=== PATIENT | male | born 1965 | race American Indian/Alaskan Native ===

== ENCOUNTER 2016-06-12 22:59 | Emergency (ER) | payer OTHER ==
[2016-06-13] MEDS ORDERED: ROBITUSSIN AC PO ONE ×2 (01:57→02:33)
[2016-06-13] MEDS ORDERED: ZITHROMAX PO ONE (01:57)
--- NOTE | 2016-06-13 01:57 | Emergency Department Report ---
HPI - General Chief Complaint: Upper Respiratory Infection Time Seen by Provider: 06/13/16 01:16 - HPI HPI: Patient is a 51-year-old male with a history of bronchitis a preferred to ED complaining of cough 3 days. Patient states cough is began as nonproductive and has become productive with yellow greenish mucus tinged cough. he states that she is very comfortably coughing she states cough is intermittent throughout the day worse at night causing him for restless night Patient denies fever/chills/nausea/vomiting/abdominal pain ED Past Medical Hx - Past Medical History Previous Medical History?: Yes Hx Hypertension: Yes Hx GERD: Yes Hx Arthritis: Yes Additional medical history: GOUT - Surgical History Past Surgical History?: Yes Additional Surgical History: bilateral knee surgery - Social History Smoking Status: Never Smoker Substance Use Type: None - Medications Home Medications: Home Medications Medication Instructions Recorded Confirmed Last Taken Type Febuxostat [Uloric] 80 mg PO DAILY 03/23/14 05/06/14 03/23/14 History Lisinopril [Zestril TAB] 5 mg PO QDAY #30 tablet 05/07/14 Unknown Rx amLODIPine [Norvasc] 5 mg PO HS #30 tablet 05/07/14 Unknown Rx Cyclobenzaprine [Flexeril 10mg] 10 mg PO Q8H PRN #21 tablet 06/17/14 Unknown Rx Albuterol Sulfate [Ventolin HFA] 2 puff IH Q4H PRN #1 hfa.aer.ad 12/16/14 Unknown Rx Azithromycin [Zithromax Z-KORY] 0 mg PO DAILY #6 tab 12/16/14 Unknown Rx predniSONE [Deltasone] 20 mg PO BID #10 tab 12/16/14 Unknown Rx Azithromycin [Zithromax TAB] 250 mg PO DAILY #4 tablet 06/13/16 Unknown Rx Benzonatate [Tessalon Perles] 100 mg PO Q8HR #20 capsule 06/13/16 Unknown Rx Promethazine /Codeine 5 ml PO Q6H PRN #100 ml 06/13/16 Unknown Rx [Phenergan/Codeine 6.25-10 mg/5 ml] ED Review of Systems ROS: Stated complaint: BREATHING PAIN Other details as noted in HPI Constitutional: denies: chills, fever Eyes: denies: eye pain, eye discharge, vision change ENT: denies: ear pain, throat pain, dental pain, hearing loss, epistaxis, congestion Respiratory: cough. denies: shortness of breath, wheezing Cardiovascular: denies: chest pain, palpitations Endocrine: no symptoms reported Gastrointestinal: denies: abdominal pain, nausea, diarrhea Genitourinary: denies: urgency, dysuria Musculoskeletal: denies: back pain, joint swelling, arthralgia Skin: denies: rash, lesions Neurological: denies: headache, weakness, paresthesias Psychiatric: denies: anxiety, depression Hematological/Lymphatic: denies: easy bleeding, easy bruising Physical Exam - Physical Exam Vital Signs: Vital Signs 06/12/16 23:08 Temperature 98.7 F Pulse Rate 97 H Respiratory 16 Rate Blood Pressure 161/113 O2 Sat by Pulse 98 Oximetry Physical Exam: GENERAL: Alert and oriented x3, no apparent distress, Normal Gait, atraumatic. Intermittent coughing during the examination HEAD: Head is normocephalic and a-traumatic. EYES: Extra ocular muscles are intact. Pupils are equal, round, and reactive to light and accommodation. EARS: symetrical, atraumatic, non tender, ear canal clear and moderate cerumen, tympanic membrance non inflamed. gross auditory nml bilaterally. NOSE: Nose symetrical, Nontender,Nares appeared normal. MOUTH:Mouth is well hydrated and without lesions. Tonsils nonerythematous or swollen, Uvula midline, Tongue not elevated. Mucous membranes are moist. Posterior pharynx clear, no exudate or lesions. Patent airways. NECK: Supple. Non edematous, No carotid bruits. No lymphadenopathy or thyromegaly. LUNGS: Symetrical with respiration, No wheezing, no rales or crackles, CTAB. HEART: S1, S2 present, regular rate and rhythm without murmur, no rubs, no gallops. ABDOMEN: No organomegaly was noted,Positive bowel sounds, soft, and non- distended. . Nontender to palpation on all Quadrants, NO CVA tenderness. SKIN: Warm and dry, No lesions, No ulceration or induration present. ED Course Vital Signs 06/12/16 23:08 Temperature 98.7 F Pulse Rate 97 H Respiratory 16 Rate Blood Pressure 161/113 O2 Sat by Pulse 98 Oximetry ED Medical Decision Making - Medical Decision Making 51-year-old male presents with bronchitis with upper respiratory infection. ED course: He received Solu-Medrol IM and ED Philip Discussed the patient to follow-up with primary care physician in 3-5 days. Discussed with patient proper rest and increase hydration. Discussed all medication of complete dose of antibiotic and cough suppressant. Patient vital signs are stable. Patient's blood pressure reduced prior to discharge. Discussed the patient and go home and take his blood pressure medication. Patient states he is on lisinopril amlodipine and has not taken his blood pressure today - Differential Diagnosis 1. Upper respiratory infection 2. Bronchitis, 3. Sinusitis Critical care attestation.: If time is entered above; I have spent that time in minutes in the direct care of this critically ill patient, excluding procedure time. ED Disposition Clinical Impression: Bronchitis URI (upper respiratory infection) Qualifiers: URI type: unspecified URI Qualified Code(s): J06.9 - Acute upper respiratory infection, unspecified Disposition: DISCHARGED TO HOME OR SELFCARE Is pt being admited?: No Does the pt Need Aspirin: No Condition: Stable Instructions: Upper Respiratory Infection (ED), Chronic Bronchitis (ED) Prescriptions: Azithromycin [Zithromax TAB] 250 mg PO DAILY #4 tablet Benzonatate [Tessalon Perles] 100 mg PO Q8HR #20 capsule Promethazine /Codeine [Phenergan/Codeine 6.25-10 mg/5 ml] 5 ml PO Q6H PRN #100 ml PRN Reason: cough Referrals: PRIMARY MD MACI [Primary Care Provider] - 3-5 Days KENIA COLLIER MD [Referring] - 3-5 Days ABDULLAHI GALINDO MD [Referring] - 3-5 Days Forms: Accompanied Note, Work/School Release Form(ED) Time of Disposition: 02:22
[2016-06-13 02:04] VITALS: BP 140/101
== END 2016-06-13 03:13 | disposition home or self-care (01) ==
LOC: ED 22:59
DX: J40 Bronchitis, not specified as acute or chronic (principal); J06.9 Acute upper respiratory infection, unspecified; I10 Essential (primary) hypertension; K21.9 Gastro-esophageal reflux disease without esophagitis; M19.90 Unspecified osteoarthritis, unspecified site; M10.9 Gout, unspecified
CPT/HCPCS: 96372; 99282; J2930

== ENCOUNTER 2016-08-11 06:19 | Emergency (ER) | payer OTHER ==
[2016-08-11 06:48] VITALS: BP 149/110
[2016-08-11 07:05] LABS: Basophils % (Auto) 0.8 % (0.0-1.8); Eosinophils % (Auto) 4.4 % (0.0-4.3); Hematocrit 42.5 % (35.5-45.6); Hemoglobin 14.1 gm/dl (11.8-15.2); Mean Corpuscular HGB Conc 33 % (32-34); Mean Corpuscular Hemoglobin 30 pg (28-32); Mean Corpuscular Volume 89 fl (84-94); Red Blood Count 4.76 M/mm3 (3.65-5.03); Red Cell Distribution Width 14.2 % (13.2-15.2); White Blood Count 11.5 K/mm3 (4.5-11.0)
[2016-08-11 07:16] LABS: Anion Gap 19 mmol/L; Blood Urea Nitrogen 18 mg/dL (9-20); Calcium 8.7 mg/dL (8.4-10.2); Carbon Dioxide 25 mmol/L (22-30); Chloride 99.6 mmol/L (98-107); Glucose 124 mg/dL (75-100); Potassium 4.3 mmol/L (3.6-5.0); Sodium 139 mmol/L (137-145)
--- NOTE | 2016-08-11 07:40 | Emergency Department Report ---
ED General Adult HPI - General Chief complaint: Extremity Problem,Nontraumatic Stated complaint: LEFT FOOT GOUT PAIN Time Seen by Provider: 08/11/16 07:17 Source: patient Mode of arrival: Ambulatory Limitations: No Limitations - History of Present Illness Initial comments: Patient comes in the ER today with complaints of left ankle pain and swelling since about 3 AM which is approximately 4-5 hours ago. Patient states this feels like his past gout flareups. Patient has been taking allopurinol 300 mg daily chronically and his last gout flareup was May 2016. Patient denies any injury. Patient does state that he has a cane he keeps in his car for ambulation. Radiation: non-radiation Quality: sharp Consistency: constant Improves with: rest Worsens with: movement - Related Data Home Medications Medication Instructions Recorded Confirmed Last Taken Febuxostat [Uloric] 80 mg PO DAILY 03/23/14 05/06/14 03/23/14 Previous Rx's Medication Instructions Recorded Last Taken Type Lisinopril [Zestril TAB] 5 mg PO QDAY #30 tablet 05/07/14 Unknown Rx amLODIPine [Norvasc] 5 mg PO HS #30 tablet 05/07/14 Unknown Rx Cyclobenzaprine [Flexeril 10 MG 10 mg PO Q8H PRN #21 tablet 06/17/14 Unknown Rx TAB] Albuterol Sulfate [Ventolin HFA] 2 puff IH Q4H PRN #1 hfa.aer.ad 12/16/14 Unknown Rx predniSONE [Deltasone] 20 mg PO BID #10 tab 12/16/14 Unknown Rx Benzonatate [Tessalon Perles] 100 mg PO Q8HR #20 capsule 06/13/16 Unknown Rx Colchicine 0.6 mg PO BID #10 tablet 08/11/16 Unknown Rx Indomethacin 50 mg PO Q8H #30 capsule 08/11/16 Unknown Rx traMADol [Ultram 50 MG tab] 50 mg PO Q4HR PRN #30 tablet 08/11/16 Unknown Rx Allergies Allergy/AdvReac Type Severity Reaction Status Date / Time acetaminophen [From Tylenol] Allergy Swelling Verified 03/23/14 21:24 Penicillins Allergy Swelling Verified 03/23/14 21:24 ED Review of Systems ROS: Stated complaint: LEFT FOOT GOUT PAIN Other details as noted in HPI Constitutional: denies: chills, fever Eyes: denies: eye pain, eye discharge, vision change ENT: denies: ear pain, throat pain Respiratory: denies: cough, shortness of breath, wheezing Cardiovascular: denies: chest pain, palpitations, dyspnea on exertion Endocrine: no symptoms reported Gastrointestinal: denies: abdominal pain, nausea, diarrhea Genitourinary: denies: urgency, dysuria Musculoskeletal: joint swelling, arthralgia. denies: back pain Skin: denies: rash, lesions Neurological: denies: headache, weakness, paresthesias Psychiatric: denies: anxiety, depression Hematological/Lymphatic: denies: easy bleeding, easy bruising ED Past Medical Hx - Past Medical History Previous Medical History?: Yes Hx Hypertension: Yes Hx GERD: Yes Hx Arthritis: Yes Additional medical history: GOUT - Surgical History Past Surgical History?: Yes Additional Surgical History: bilateral knee surgery - Social History Smoking Status: Never Smoker Substance Use Type: Alcohol - Medications Home Medications: Home Medications Medication Instructions Recorded Confirmed Last Taken Type Febuxostat [Uloric] 80 mg PO DAILY 03/23/14 05/06/14 03/23/14 History Lisinopril [Zestril TAB] 5 mg PO QDAY #30 tablet 05/07/14 Unknown Rx amLODIPine [Norvasc] 5 mg PO HS #30 tablet 05/07/14 Unknown Rx Cyclobenzaprine [Flexeril 10 MG 10 mg PO Q8H PRN #21 tablet 06/17/14 Unknown Rx TAB] Albuterol Sulfate [Ventolin HFA] 2 puff IH Q4H PRN #1 hfa.aer.ad 12/16/14 Unknown Rx predniSONE [Deltasone] 20 mg PO BID #10 tab 12/16/14 Unknown Rx Benzonatate [Tessalon Perles] 100 mg PO Q8HR #20 capsule 06/13/16 Unknown Rx Colchicine 0.6 mg PO BID #10 tablet 08/11/16 Unknown Rx Indomethacin 50 mg PO Q8H #30 capsule 08/11/16 Unknown Rx traMADol [Ultram 50 MG tab] 50 mg PO Q4HR PRN #30 tablet 08/11/16 Unknown Rx ED Physical Exam - General Limitations: No Limitations General appearance: alert, in no apparent distress - Head Head exam: Present: atraumatic, normocephalic - Eye Eye exam: Present: normal appearance - ENT ENT exam: Present: mucous membranes moist - Neck Neck exam: Present: normal inspection - Respiratory Respiratory exam: Present: normal lung sounds bilaterally. Absent: respiratory distress - Cardiovascular Cardiovascular Exam: Present: regular rate, normal rhythm. Absent: systolic murmur, diastolic murmur, rubs, gallop - GI/Abdominal GI/Abdominal exam: Present: soft, normal bowel sounds - Rectal Rectal exam: Present: deferred - Extremities Exam Extremities exam: Present: normal inspection, tenderness (left ankle), joint swelling (mild amount of swelling in left ankle.). Absent: full ROM (limited left ankle range of motion secondary to pain.), normal capillary refill, pedal edema, calf tenderness - Back Exam Back exam: Present: normal inspection, full ROM. Absent: tenderness, CVA tenderness (R), CVA tenderness (L), muscle spasm, rash noted - Neurological Exam Neurological exam: Present: alert, oriented X3, CN II-XII intact, abnormal gait (limping secondary to pain and left ankle), reflexes normal. Absent: motor sensory deficit - Psychiatric Psychiatric exam: Present: normal affect, normal mood - Skin Skin exam: Present: warm, dry, intact, normal color. Absent: rash ED Course Vital Signs 08/11/16 06:44 Temperature 98.0 F Pulse Rate 73 Respiratory 20 Rate Blood Pressure 149/110 O2 Sat by Pulse 99 Oximetry ED Medical Decision Making - Lab Data Result diagrams: 08/11/16 06:52 08/11/16 06:52 - Medical Decision Making Patient is nontoxic and hemodynamically stable. Patient's history and physical exam is more consistent with gout rather than injury. I see no need for imaging at this time. Patient was given single dose of colchicine in the ER. I will continue patient on a short course of colchicine as well as some anti- inflammatories. Patient is in agreement with treatment plan and patient is stable for discharge. Critical care attestation.: If time is entered above; I have spent that time in minutes in the direct care of this critically ill patient, excluding procedure time. ED Disposition Clinical Impression: Gout, Left ankle pain Disposition: DISCHARGED TO HOME OR SELFCARE Is pt being admited?: No Does the pt Need Aspirin: No Condition: Good Instructions: Acute Gouty Arthritis (ED) Prescriptions: Colchicine 0.6 mg PO BID #10 tablet Indomethacin 50 mg PO Q8H #30 capsule traMADol [Ultram 50 MG tab] 50 mg PO Q4HR PRN #30 tablet PRN Reason: Pain Referrals: PRIMARY CARE,MD [Primary Care Provider] - 3-5 Days Time of Disposition: 07:50
[2016-08-11] MEDS ORDERED: COLCRYS PO ONE (08:00)
[2016-08-11 09:02] LABS: Platelet Count 286 K/mm3 (140-440)
== END 2016-08-11 08:36 | disposition home or self-care (01) ==
LOC: ED 06:19
DX: M10.9 Gout, unspecified (principal); M25.572 Pain in left ankle and joints of left foot; I10 Essential (primary) hypertension; K21.9 Gastro-esophageal reflux disease without esophagitis; M19.90 Unspecified osteoarthritis, unspecified site; Z88.0 Allergy status to penicillin; Z88.8 Allergy status to other drugs, medicaments and biological substances
CPT/HCPCS: 36415; 80048; 85025; 99283

== ENCOUNTER 2018-04-13 08:52 | Emergency (ER) | payer OTHER ==
[2018-04-13] MEDS ORDERED: IBUPROFEN PO ONE ×2 (09:06→09:12)
--- NOTE | 2018-04-13 10:09 | Emergency Department Report ---
Minor Respiratory - HPI Chief Complaint: Upper Respiratory Infection Stated Complaint: COLD SX/HEADACHE Time Seen by Provider: 04/13/18 09:46 Duration: 2 Days Pain Location: Chest Severity: moderate Minor Respiratory: Yes Rhinorrhea, Yes Able to Tolerate Fluids, Yes Cough (productive of yellow sputum), Yes Sick Contacts (daughter ill as well), Yes Fever, No Sore Throat, No Ear Pain, No Hemoptysis, No Chest Pain, No Shortness of Breath ED Review of Systems ROS: Stated complaint: COLD SX/HEADACHE Other details as noted in HPI Comment: All other systems reviewed and negative ED Past Medical Hx - Past Medical History Hx Hypertension: Yes Hx GERD: Yes Hx Arthritis: Yes Additional medical history: GOUT - Surgical History Past Surgical History?: Yes Additional Surgical History: bilateral knee surgery - Social History Smoking Status: Never Smoker Substance Use Type: None - Medications Home Medications: Home Medications Medication Instructions Recorded Confirmed Last Taken Type Febuxostat [Uloric] 80 mg PO DAILY 03/23/14 05/06/14 03/23/14 History Lisinopril [Zestril TAB] 5 mg PO QDAY #30 tablet 05/07/14 Unknown Rx amLODIPine [Norvasc] 5 mg PO HS #30 tablet 05/07/14 Unknown Rx Cyclobenzaprine [Flexeril 10 MG 10 mg PO Q8H PRN #21 tablet 06/17/14 Unknown Rx TAB] Albuterol Sulfate [Ventolin HFA] 2 puff IH Q4H PRN #1 hfa.aer.ad 12/16/14 Unknown Rx predniSONE [Deltasone] 20 mg PO BID #10 tab 12/16/14 Unknown Rx Benzonatate [Tessalon Perles] 100 mg PO Q8HR #20 capsule 06/13/16 Unknown Rx Colchicine 0.6 mg PO BID #10 tablet 08/11/16 Unknown Rx Indomethacin 50 mg PO Q8H #30 capsule 08/11/16 Unknown Rx traMADol [Ultram 50 MG tab] 50 mg PO Q4HR PRN #30 tablet 08/11/16 Unknown Rx ALBUTEROL Inhaler (OR & NICU) 2 puff IH QID PRN #1 inhalation 04/13/18 Unknown Rx [ProAir HFA Inhaler] Azithromycin [Zithromax Z-KORY] 250 mg PO DAILY #6 tablet 04/13/18 Unknown Rx Benzonatate [Tessalon Perles] 100 mg PO Q8HR #10 capsule 04/13/18 Unknown Rx predniSONE [Deltasone] 20 mg PO QDAY #5 tab 04/13/18 Unknown Rx Minor Respiratory Exam - Exam General: Vital signs noted. No distress. Alert and acting appropriately. HEENT: Yes Moist Mucous Membranes, No Pharyngeal Erythema, No Pharyngeal Exudates, No Rhinorrhea, No Conjuctival Injection, No Frontal Tenderness, No Maxillary Tenderness Ear: Neither TM Bulge, Neither TM Erythema, Neither EAC Pain, Neither EAC Discharge Neck: Yes Supple, No Adenopathy (\) Lungs: Yes Good Air Exchange, Yes Cough, No Wheezes, No Ronchi, No Stridor, No Labored Respirations, No Retractions, No Use of Accessory Muscles, No Other Abnormal Lung Sounds Heart: Yes Regular, No Murmur Abdomen: Yes Normal Bowel Sounds, No Tenderness, No Peritoneal Signs Skin: No Rash, No Edema Neurologic: Alert and oriented, no deficits. Musculoskeletal: Unremarkable. ED Course Vital Signs 04/13/18 09:06 Temperature 100.3 F H Pulse Rate 115 H Respiratory 18 Rate Blood Pressure 178/118 O2 Sat by Pulse 96 Oximetry ED Medical Decision Making - Medical Decision Making . Critical care attestation.: If time is entered above; I have spent that time in minutes in the direct care of this critically ill patient, excluding procedure time. ED Disposition Clinical Impression: Upper respiratory infection Disposition: DC-01 TO HOME OR SELFCARE Is pt being admited?: No Does the pt Need Aspirin: No Condition: Stable Instructions: Upper Respiratory Infection (ED) Time of Disposition: 10:12
[2018-04-15 11:42] VITALS: BP 160/110
== END 2018-04-13 10:30 | disposition home or self-care (01) ==
LOC: ED 08:52
DX: J06.9 Acute upper respiratory infection, unspecified (principal); I10 Essential (primary) hypertension; K21.9 Gastro-esophageal reflux disease without esophagitis; M19.90 Unspecified osteoarthritis, unspecified site
CPT/HCPCS: 99282

== ENCOUNTER 2018-04-16 07:25 | Emergency (ER) | payer OTHER ==
--- NOTE | 2018-04-16 10:32 | Emergency Department Report ---
ED General Adult HPI - General Chief complaint: Upper Respiratory Infection Stated complaint: CHEST CONGESTION Time Seen by Provider: 04/16/18 10:15 Source: patient Mode of arrival: Ambulatory Limitations: No Limitations - History of Present Illness Initial comments: She complains of a cough and congestion for the last 3 days. She also states that he's had a fever at home as well. Patient denies chest pain, abdominal pain, headache. -: Sudden Radiation: non-radiation Severity scale (0 -10): 2 Consistency: constant Improves with: none Worsens with: none Associated Symptoms: denies other symptoms Treatments Prior to Arrival: none - Related Data Home Medications Medication Instructions Recorded Confirmed Last Taken Febuxostat [Uloric] 80 mg PO DAILY 03/23/14 05/06/14 03/23/14 Previous Rx's Medication Instructions Recorded Last Taken Type Lisinopril [Zestril TAB] 5 mg PO QDAY #30 tablet 05/07/14 Unknown Rx amLODIPine [Norvasc] 5 mg PO HS #30 tablet 05/07/14 Unknown Rx Cyclobenzaprine [Flexeril 10 MG 10 mg PO Q8H PRN #21 tablet 06/17/14 Unknown Rx TAB] Albuterol Sulfate [Ventolin HFA] 2 puff IH Q4H PRN #1 hfa.aer.ad 12/16/14 Unknown Rx predniSONE [Deltasone] 20 mg PO BID #10 tab 12/16/14 Unknown Rx Benzonatate [Tessalon Perles] 100 mg PO Q8HR #20 capsule 06/13/16 Unknown Rx Colchicine 0.6 mg PO BID #10 tablet 08/11/16 Unknown Rx Indomethacin 50 mg PO Q8H #30 capsule 08/11/16 Unknown Rx traMADol [Ultram 50 MG tab] 50 mg PO Q4HR PRN #30 tablet 08/11/16 Unknown Rx ALBUTEROL Inhaler (OR & NICU) 2 puff IH QID PRN #1 inhalation 04/13/18 Unknown Rx [ProAir HFA Inhaler] Azithromycin [Zithromax Z-KORY] 250 mg PO DAILY #6 tablet 04/13/18 Unknown Rx Benzonatate [Tessalon Perles] 100 mg PO Q8HR #10 capsule 04/13/18 Unknown Rx predniSONE [Deltasone] 20 mg PO QDAY #5 tab 04/13/18 Unknown Rx ALBUTEROL NEB's [Proventil 0.083% 2.5 mg IH Q4HR PRN #30 ml 04/16/18 Unknown Rx NEBS] Doxycycline [Vibramycin CAP] 100 mg PO Q12HR #14 capsule 04/16/18 Unknown Rx Hydrocodone/Chlorphen Polis(Nf 473 ml PO BID #180 susp 04/16/18 Unknown Rx [Tussionex (Nf)] Nebulizer [Truneb Nebulizer] 1 each MC Q4HR PRN #1 each 04/16/18 Unknown Rx Allergies Allergy/AdvReac Type Severity Reaction Status Date / Time acetaminophen [From Tylenol] Allergy Swelling Verified 03/23/14 21:24 Penicillins Allergy Swelling Verified 03/23/14 21:24 ED Review of Systems ROS: Stated complaint: CHEST CONGESTION Other details as noted in HPI Comment: All other systems reviewed and negative Constitutional: denies: chills, fever Eyes: denies: eye pain, eye discharge, vision change ENT: denies: ear pain, throat pain Respiratory: cough. denies: shortness of breath, wheezing Cardiovascular: denies: chest pain, palpitations Endocrine: no symptoms reported Gastrointestinal: denies: abdominal pain, nausea, diarrhea Genitourinary: denies: urgency, dysuria Musculoskeletal: denies: back pain, joint swelling, arthralgia Skin: denies: rash, lesions Neurological: denies: headache, weakness, paresthesias Psychiatric: denies: anxiety, depression Hematological/Lymphatic: denies: easy bleeding, easy bruising ED Past Medical Hx - Past Medical History Hx Hypertension: Yes Hx GERD: Yes Hx Arthritis: Yes Additional medical history: GOUT - Surgical History Past Surgical History?: Yes Additional Surgical History: bilateral knee surgery - Social History Smoking Status: Never Smoker Substance Use Type: None - Medications Home Medications: Home Medications Medication Instructions Recorded Confirmed Last Taken Type Febuxostat [Uloric] 80 mg PO DAILY 03/23/14 05/06/14 03/23/14 History Lisinopril [Zestril TAB] 5 mg PO QDAY #30 tablet 05/07/14 Unknown Rx amLODIPine [Norvasc] 5 mg PO HS #30 tablet 05/07/14 Unknown Rx Cyclobenzaprine [Flexeril 10 MG 10 mg PO Q8H PRN #21 tablet 06/17/14 Unknown Rx TAB] Albuterol Sulfate [Ventolin HFA] 2 puff IH Q4H PRN #1 hfa.aer.ad 12/16/14 Unknown Rx predniSONE [Deltasone] 20 mg PO BID #10 tab 12/16/14 Unknown Rx Benzonatate [Tessalon Perles] 100 mg PO Q8HR #20 capsule 06/13/16 Unknown Rx Colchicine 0.6 mg PO BID #10 tablet 08/11/16 Unknown Rx Indomethacin 50 mg PO Q8H #30 capsule 08/11/16 Unknown Rx traMADol [Ultram 50 MG tab] 50 mg PO Q4HR PRN #30 tablet 08/11/16 Unknown Rx ALBUTEROL Inhaler (OR & NICU) 2 puff IH QID PRN #1 inhalation 04/13/18 Unknown Rx [ProAir HFA Inhaler] Azithromycin [Zithromax Z-KORY] 250 mg PO DAILY #6 tablet 04/13/18 Unknown Rx Benzonatate [Tessalon Perles] 100 mg PO Q8HR #10 capsule 04/13/18 Unknown Rx predniSONE [Deltasone] 20 mg PO QDAY #5 tab 04/13/18 Unknown Rx ALBUTEROL NEB's [Proventil 0.083% 2.5 mg IH Q4HR PRN #30 ml 04/16/18 Unknown Rx NEBS] Doxycycline [Vibramycin CAP] 100 mg PO Q12HR #14 capsule 04/16/18 Unknown Rx Hydrocodone/Chlorphen Polis(Nf 473 ml PO BID #180 susp 04/16/18 Unknown Rx [Tussionex (Nf)] Nebulizer [Truneb Nebulizer] 1 each MC Q4HR PRN #1 each 04/16/18 Unknown Rx ED Physical Exam - General Limitations: No Limitations General appearance: alert, in no apparent distress - Head Head exam: Present: atraumatic, normocephalic - Eye Eye exam: Present: normal appearance, PERRL, EOMI - ENT ENT exam: Present: mucous membranes moist - Neck Neck exam: Present: normal inspection - Respiratory Respiratory exam: Present: normal lung sounds bilaterally, wheezes (end expiratory wheezing ), rales. Absent: respiratory distress - Cardiovascular Cardiovascular Exam: Present: regular rate, normal rhythm. Absent: systolic murmur, diastolic murmur, rubs, gallop - GI/Abdominal GI/Abdominal exam: Present: soft, normal bowel sounds. Absent: distended, tenderness - Rectal Rectal exam: Present: deferred - Extremities Exam Extremities exam: Present: normal inspection - Back Exam Back exam: Present: normal inspection - Neurological Exam Neurological exam: Present: alert, oriented X3, CN II-XII intact. Absent: motor sensory deficit - Psychiatric Psychiatric exam: Present: normal affect, normal mood - Skin Skin exam: Present: warm, dry, intact, normal color. Absent: rash ED Course Vital Signs 04/16/18 07:46 Temperature 98.2 F Pulse Rate 100 H Respiratory 18 Rate Blood Pressure 168/98 O2 Sat by Pulse 97 Oximetry ED Medical Decision Making - Radiology Data Radiology results: report reviewed - Medical Decision Making Discussed plan of care with patient Critical care attestation.: If time is entered above; I have spent that time in minutes in the direct care of this critically ill patient, excluding procedure time. ED Disposition Clinical Impression: Bronchitis Disposition: DC-01 TO HOME OR SELFCARE Is pt being admited?: No Does the pt Need Aspirin: No Condition: Stable Instructions: Acute Bronchitis (ED) Additional Instructions: return if worse Prescriptions: ALBUTEROL NEB's [Proventil 0.083% NEBS] 2.5 mg IH Q4HR PRN #30 ml PRN Reason: Wheezing Doxycycline [Vibramycin CAP] 100 mg PO Q12HR #14 capsule Hydrocodone/Chlorphen Polis(Nf [Tussionex (Nf)] 473 ml PO BID #180 susp Nebulizer [Truneb Nebulizer] 1 each MC Q4HR PRN #1 each PRN Reason: Wheezing Referrals: ARLENE SAUCEDO MD [Primary Care Provider] - 3-5 Days Forms: Work/School Release Form(ED) Time of Disposition: 10:32
[2018-04-16 10:41] VITALS: BP 155/93
--- NOTE | 2018-04-16 11:16 | XRay Report ---
PA and lateral chest: Cough, SOB. In the frontal projection is some question of a very faint area of increased opacity in the right midlung. This is not identified in the lateral projection. With this exception the findings are otherwise unremarkable. There is a mild mid thoracic dextroscoliosis. Impression: Questionable mild infiltrate on the right.
== END 2018-04-16 10:41 | disposition home or self-care (01) ==
LOC: ED 07:25
DX: J40 Bronchitis, not specified as acute or chronic (principal); I10 Essential (primary) hypertension; K21.9 Gastro-esophageal reflux disease without esophagitis; M19.90 Unspecified osteoarthritis, unspecified site; Z88.6 Allergy status to analgesic agent; Z88.0 Allergy status to penicillin
CPT/HCPCS: 71046; 99283

== ENCOUNTER 2018-05-03 13:28 | Emergency (ER) | payer OTHER ==
--- NOTE | 2018-05-03 14:12 | Emergency Department Report ---
Blank Doc - Documentation Documentation: This is a 53-year-old male that presents with headache. Stated last night hit his head against the car door. Denies any other complaints or symptoms. This initial assessment diagnostic orders/clinical plan/treatment(s) is/are subject to change based on patient's health status, clinical progression and re- assessment by fellow clinical providers in the ED. Further treatment and workup at subsequent clinical providers discretion. Patient/guardians urged not to elope from ED s their condition may be serious if not clinically assessed and managed. Initial orders include: 1-Patient sent to [facility] for further evaluation and treatment 2-CT head
[2018-05-03 14:14] VITALS: BP 167/105
--- NOTE | 2018-05-03 15:02 | Cat Scan Report ---
CT HEAD WITHOUT CONTRAST: HISTORY: Headache. TECHNIQUE: Sequential 2.5mm CT images. COMPARISON: none. FINDINGS: Cerebral Parenchyma: Within normal limits. Cerebellum: Within normal limits. Brainstem: Within normal limits. Ventricles: Normal. Sella: Normal. Extra-axial spaces: Normal. Basal Cisterns: Normal. Intracranial Hemorrhage: None. Midline Shift: None. Calvarium: Normal. Sinuses: Normal. Mastoid Air Cells: Normal. Visualized Orbits: Normal. IMPRESSION: Cranial CT scan within normal limits.
--- NOTE | 2018-05-03 16:11 | Emergency Department Report ---
HPI - General Chief Complaint: Head Injury Time Seen by Provider: 05/03/18 14:11 - HPI HPI: 53-year-old -[place] male presents to the emergency department with a complaint of hitting his head while getting out of the car yesterday afternoon. He denies any loss of consciousness but says that he did hit his head very hard. He had a headache at that time and took some Aleve last night and says that he slept very well. However he woke up with the headache returned and said that he felt out of it. He went to work today and said that even his boss noticed that he was "glassy eyed and that something was off." He has a past medical history of arthritis, GERD, hypertension, gout. He denies any vision change, slurred speech, nausea, vomiting or fever. ED Past Medical Hx - Past Medical History Previous Medical History?: Yes Hx Hypertension: Yes Hx GERD: Yes Hx Arthritis: Yes Additional medical history: GOUT - Surgical History Past Surgical History?: Yes Additional Surgical History: bilateral knee surgery - Social History Smoking Status: Never Smoker Substance Use Type: None - Medications Home Medications: Home Medications Medication Instructions Recorded Confirmed Last Taken Type RX: Febuxostat [Uloric] 80 mg PO DAILY 03/23/14 05/06/14 03/23/14 History RX: Lisinopril [Zestril TAB] 5 mg PO QDAY #30 tablet 05/07/14 Unknown Rx RX: amLODIPine [Norvasc] 5 mg PO HS #30 tablet 05/07/14 Unknown Rx RX: Cyclobenzaprine [Flexeril 10 10 mg PO Q8H PRN #21 tablet 06/17/14 Unknown Rx MG TAB] RX: Albuterol Sulfate [Ventolin 2 puff IH Q4H PRN #1 hfa.aer.ad 12/16/14 Unknown Rx HFA] RX: predniSONE [Deltasone] 20 mg PO BID #10 tab 12/16/14 Unknown Rx RX: Benzonatate [Tessalon Perles] 100 mg PO Q8HR #20 capsule 06/13/16 Unknown Rx RX: Colchicine 0.6 mg PO BID #10 tablet 08/11/16 Unknown Rx RX: Indomethacin 50 mg PO Q8H #30 capsule 08/11/16 Unknown Rx RX: traMADol [Ultram 50 MG tab] 50 mg PO Q4HR PRN #30 tablet 08/11/16 Unknown Rx Benzonatate [Tessalon Perles] 100 mg PO Q8HR #10 capsule 04/13/18 Unknown Rx RX: ALBUTEROL Inhaler (OR & NICU) 2 puff IH QID PRN #1 inhalation 04/13/18 Unknown Rx [ProAir HFA Inhaler] RX: Azithromycin [Zithromax Z-KORY] 250 mg PO DAILY #6 tablet 04/13/18 Unknown Rx RX: predniSONE [Deltasone] 20 mg PO QDAY #5 tab 04/13/18 Unknown Rx Hydrocodone/Chlorphen Polis(Nf 473 ml PO BID #180 susp 04/16/18 Unknown Rx [Tussionex (Nf)] RX: ALBUTEROL NEB's [Proventil 2.5 mg IH Q4HR PRN #30 ml 04/16/18 Unknown Rx 0.083% NEBS] RX: Doxycycline [Vibramycin CAP] 100 mg PO Q12HR #14 capsule 04/16/18 Unknown Rx RX: Nebulizer [Truneb Nebulizer] 1 each MC Q4HR PRN #1 each 04/16/18 Unknown Rx ED Review of Systems ROS: Stated complaint: HEAD INJURY Other details as noted in HPI Comment: All other systems reviewed and negative Constitutional: denies: chills, fever Eyes: denies: eye pain, vision change ENT: denies: ear pain, throat pain Respiratory: denies: cough, shortness of breath Cardiovascular: denies: chest pain, palpitations Gastrointestinal: denies: abdominal pain, vomiting Genitourinary: denies: dysuria, discharge Musculoskeletal: denies: back pain, arthralgia Skin: denies: rash, lesions Neurological: headache. denies: numbness, paresthesias Physical Exam - Physical Exam Vital Signs: Vital Signs 05/03/18 14:12 Temperature 98.8 F Pulse Rate 102 H Respiratory 18 Rate Blood Pressure 167/105 O2 Sat by Pulse 99 Oximetry Physical Exam: GENERAL: The patient is well-developed well-nourished. HEENT: Normocephalic. Atraumatic. Patient has moist mucous membranes. EYES: Extraocular motions are intact. Pupils are equal and reactive to light bilaterally. No nystagmus. NECK: Supple. Trachea is midline. CHEST/LUNGS: Clear to auscultation. There is no respiratory distress noted. HEART/CARDIOVASCULAR: Regular. There is no tachycardia. There is no obvious murmur. ABDOMEN: There is no abdominal distention. SKIN: Skin is warm and dry. NEURO: The patient is awake, alert, and oriented. The patient is cooperative. The patient has no focal neurologic deficits. The patient has normal speech. Cranial nerves II through XII grossly intact. MUSCULOSKELETAL: There is no tenderness or deformity. There is no evidence of acute injury. ED Course Vital Signs 05/03/18 14:12 Temperature 98.8 F Pulse Rate 102 H Respiratory 18 Rate Blood Pressure 167/105 O2 Sat by Pulse 99 Oximetry ED Medical Decision Making - Radiology Data Radiology results: report reviewed CT HEAD WITHOUT CONTRAST: HISTORY: Headache. TECHNIQUE: Sequential 2.5mm CT images. COMPARISON: none. FINDINGS: Cerebral Parenchyma: Within normal limits. Cerebellum: Within normal limits. Brainstem: Within normal limits. Ventricles: Normal. Sella: Normal. Extra-axial spaces: Normal. Basal Cisterns: Normal. Intracranial Hemorrhage: None. Midline Shift: None. Calvarium: Normal. Sinuses: Normal. Mastoid Air Cells: Normal. Visualized Orbits: Normal. IMPRESSION: Cranial CT scan within normal limits. Transcribed By: TTR Dictated By: YOGI DOMINGUEZ JR, MD Electronically Authenticated By: YOGI DOMINGUEZ JR, MD Signed Date/Time: 05/03/18 1459 - Medical Decision Making This patient presents to the emergency department with a complaint of a headache and "feeling off" after hitting his head last night while getting out of the car. There are no signs of any lacerations. CT scan of the head without contrast did not show any skull fracture, brain bleed, shift, mass, ischemia, or any other acute process. He does not have any focal, motor or sensory deficits and his cranial nerves are intact. It is possible patient has a mild concussion with some mild postconcussive symptoms. Vital signs stable throughout his ED course. The patient appears safe for discharge home. We discussed concussions and postconcussive symptoms and trying to avoid limit overstimulation and to try to avoid any further head injury. Patient will follow up with his primary care physician and will return to the ER with any worsening of his symptoms or any acute distress. - Differential Diagnosis skull fx, brain bleed, contusion, concussion Critical Care Time: No Critical care attestation.: If time is entered above; I have spent that time in minutes in the direct care of this critically ill patient, excluding procedure time. ED Disposition Clinical Impression: Headache Qualifiers: Headache type: unspecified Headache chronicity pattern: unspecified pattern Intractability: not intractable Qualified Code(s): R51 - Headache Head injury Qualifiers: Encounter type: initial encounter Qualified Code(s): S09.90XA - Unspecified injury of head, initial encounter Disposition: DC- TO HOME OR SELFCARE Is pt being admited?: No Condition: Stable Instructions: Minor Head Injury (ED), Post Concussion Syndrome (ED) Additional Instructions: Please follow-up with your primary care physician in the next few days. Return to the emergency Department with any worsening of your symptoms or any acute distress. Referrals: [facility] [Outside] - 2-3 Days Forms: Work/School Release Form(ED) Time of Disposition: 16:11
== END 2018-05-03 16:21 | disposition home or self-care (01) ==
LOC: ED 13:28
DX: S09.90XA Unspecified injury of head, initial encounter (principal); K21.9 Gastro-esophageal reflux disease without esophagitis; I10 Essential (primary) hypertension; M10.9 Gout, unspecified; M19.90 Unspecified osteoarthritis, unspecified site; Z88.0 Allergy status to penicillin; Z88.5 Allergy status to narcotic agent; V09.9XXA Pedestrian injured in unspecified transport accident, initial encounter; Y93.89 Activity, other specified; Y92.89 Other specified places as the place of occurrence of the external cause; Y99.8 Other external cause status
CPT/HCPCS: 70450; 99283

== ENCOUNTER 2018-07-30 07:16 | Emergency (ER) | payer OTHER ==
[2018-07-30 08:02] VITALS: BP 155/109
--- NOTE | 2018-07-30 09:20 | Emergency Department Report ---
ED Neck Pain/Injury HPI - General Chief Complaint: Neck Pain/Injury Stated Complaint: RT SIDE SEVERE PAIN Time Seen by Provider: 07/30/18 08:54 Mode of arrival: Ambulatory Limitations: No Limitations - History of Present Illness Initial Comments: Patient is a 53-year-old -[place] male who is complaining of approximately 1 week of intermittent right neck pain does radiate down to his right arm. Patient states he has some tingling to his right fingers. He denies any injury. Patient states has been no fevers chills nausea vomiting. 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 Severity scale (0 -10): 5 Consistency: intermittent Improves With: movement Worsens With: immobilization, movement of neck, other (after sleeping) Associated Symptoms: none - Related Data Home Medications Medication Instructions Recorded Confirmed Last Taken Febuxostat [Uloric] 80 mg PO DAILY 03/23/14 05/06/14 03/23/14 Previous Rx's Medication Instructions Recorded Last Taken Type Lisinopril [Zestril TAB] 5 mg PO QDAY #30 tablet 05/07/14 Unknown Rx amLODIPine [Norvasc] 5 mg PO HS #30 tablet 05/07/14 Unknown Rx Cyclobenzaprine [Flexeril 10 MG 10 mg PO Q8H PRN #21 tablet 06/17/14 Unknown Rx TAB] Albuterol Sulfate [Ventolin HFA] 2 puff IH Q4H PRN #1 hfa.aer.ad 12/16/14 Unknown Rx predniSONE [Deltasone] 20 mg PO BID #10 tab 12/16/14 Unknown Rx Benzonatate [Tessalon Perles] 100 mg PO Q8HR #20 capsule 06/13/16 Unknown Rx Colchicine 0.6 mg PO BID #10 tablet 08/11/16 Unknown Rx Indomethacin 50 mg PO Q8H #30 capsule 08/11/16 Unknown Rx traMADol [Ultram 50 MG tab] 50 mg PO Q4HR PRN #30 tablet 08/11/16 Unknown Rx ALBUTEROL Inhaler (OR & NICU) 2 puff IH QID PRN #1 inhalation 04/13/18 Unknown Rx [ProAir HFA Inhaler] Azithromycin [Zithromax Z-KORY] 250 mg PO DAILY #6 tablet 04/13/18 Unknown Rx Benzonatate [Tessalon Perles] 100 mg PO Q8HR #10 capsule 04/13/18 Unknown Rx predniSONE [Deltasone] 20 mg PO QDAY #5 tab 04/13/18 Unknown Rx ALBUTEROL NEB's [Proventil 0.083% 2.5 mg IH Q4HR PRN #30 ml 04/16/18 Unknown Rx NEBS] DOXYCYCLINE Hyclate [Vibramycin 100 mg PO Q12HR #14 capsule 04/16/18 Unknown Rx CAP] Hydrocodone/Chlorphen Polis(Nf 473 ml PO BID #180 susp 04/16/18 Unknown Rx [Tussionex (Nf)] Nebulizer [Truneb Nebulizer] 1 each MC Q4HR PRN #1 each 04/16/18 Unknown Rx methOCARBAMOL [Robaxin TAB] 500 mg PO Q6H PRN #14 tablet 07/30/18 Unknown Rx predniSONE [Deltasone] 20 mg PO QDAY #5 tab 07/30/18 Unknown Rx traMADol [Ultram] 50 mg PO Q6HR PRN #12 tablet 07/30/18 Unknown Rx Allergies Allergy/AdvReac Type Severity Reaction Status Date / Time acetaminophen [From Tylenol] Allergy Swelling Verified 05/03/18 13:31 Penicillins Allergy Swelling Verified 05/03/18 13:31 ED Review of Systems ROS: Stated complaint: RT SIDE SEVERE PAIN Other details as noted in HPI Comment: All other systems reviewed and negative ED Past Medical Hx - Past Medical History Previous Medical History?: Yes Hx Hypertension: Yes Hx GERD: Yes Hx Arthritis: Yes Additional medical history: GOUT - Surgical History Past Surgical History?: Yes Additional Surgical History: bilateral knee surgery - Social History Smoking Status: Never Smoker Substance Use Type: Alcohol - Medications Home Medications: Home Medications Medication Instructions Recorded Confirmed Last Taken Type Febuxostat [Uloric] 80 mg PO DAILY 03/23/14 05/06/14 03/23/14 History Lisinopril [Zestril TAB] 5 mg PO QDAY #30 tablet 05/07/14 Unknown Rx amLODIPine [Norvasc] 5 mg PO HS #30 tablet 05/07/14 Unknown Rx Cyclobenzaprine [Flexeril 10 MG 10 mg PO Q8H PRN #21 tablet 06/17/14 Unknown Rx TAB] Albuterol Sulfate [Ventolin HFA] 2 puff IH Q4H PRN #1 hfa.aer.ad 12/16/14 Unknown Rx predniSONE [Deltasone] 20 mg PO BID #10 tab 12/16/14 Unknown Rx Benzonatate [Tessalon Perles] 100 mg PO Q8HR #20 capsule 06/13/16 Unknown Rx Colchicine 0.6 mg PO BID #10 tablet 08/11/16 Unknown Rx Indomethacin 50 mg PO Q8H #30 capsule 08/11/16 Unknown Rx traMADol [Ultram 50 MG tab] 50 mg PO Q4HR PRN #30 tablet 08/11/16 Unknown Rx ALBUTEROL Inhaler (OR & NICU) 2 puff IH QID PRN #1 inhalation 04/13/18 Unknown Rx [ProAir HFA Inhaler] Azithromycin [Zithromax Z-KORY] 250 mg PO DAILY #6 tablet 04/13/18 Unknown Rx Benzonatate [Tessalon Perles] 100 mg PO Q8HR #10 capsule 04/13/18 Unknown Rx predniSONE [Deltasone] 20 mg PO QDAY #5 tab 04/13/18 Unknown Rx ALBUTEROL NEB's [Proventil 0.083% 2.5 mg IH Q4HR PRN #30 ml 04/16/18 Unknown Rx NEBS] DOXYCYCLINE Hyclate [Vibramycin 100 mg PO Q12HR #14 capsule 04/16/18 Unknown Rx CAP] Hydrocodone/Chlorphen Polis(Nf 473 ml PO BID #180 susp 04/16/18 Unknown Rx [Tussionex (Nf)] Nebulizer [Truneb Nebulizer] 1 each MC Q4HR PRN #1 each 04/16/18 Unknown Rx methOCARBAMOL [Robaxin TAB] 500 mg PO Q6H PRN #14 tablet 07/30/18 Unknown Rx predniSONE [Deltasone] 20 mg PO QDAY #5 tab 07/30/18 Unknown Rx traMADol [Ultram] 50 mg PO Q6HR PRN #12 tablet 07/30/18 Unknown Rx ED Physical Exam - General Limitations: No Limitations General appearance: alert, in no apparent distress - Head Head exam: Present: atraumatic, normocephalic - Eye Eye exam: Present: normal appearance - ENT ENT exam: Present: mucous membranes moist - Neck Neck exam: Present: normal inspection - Respiratory Respiratory exam: Present: normal lung sounds bilaterally. Absent: respiratory distress, wheezes, rales, rhonchi - Cardiovascular Cardiovascular Exam: Present: regular rate, normal rhythm. Absent: systolic murmur, diastolic murmur, rubs, gallop - GI/Abdominal GI/Abdominal exam: Present: soft, normal bowel sounds - Rectal Rectal exam: Present: deferred - Extremities Exam Extremities exam: Present: normal inspection - Back Exam Back exam: Present: normal inspection - Neurological Exam Neurological exam: Present: alert, oriented X3 - Psychiatric Psychiatric exam: Present: normal affect, normal mood - Skin Skin exam: Present: warm, dry, intact, normal color. Absent: rash ED Course Vital Signs 07/30/18 07:54 Temperature 98.4 F Pulse Rate 84 Respiratory 16 Rate Blood Pressure 155/109 O2 Sat by Pulse 100 Oximetry ED Medical Decision Making - Radiology Data Radiology results: image reviewed (spine shows degenerative joint disease) - Medical Decision Making She'll be treated for cervical radiculopathy. Patient referred to orthopedics was given meds for symptomatic relief. Critical care attestation.: If time is entered above; I have spent that time in minutes in the direct care of this critically ill patient, excluding procedure time. ED Disposition Clinical Impression: Cervical radiculopathy, Degenerative cervical disc Disposition: DC-01 TO HOME OR SELFCARE Is pt being admited?: No Does the pt Need Aspirin: No Condition: Stable Instructions: Cervical Disc Herniation (ED), Cervical Radiculopathy (ED) Referrals: SADE LR MD [Staff Physician] - 3-5 Days Time of Disposition: 09:19
--- NOTE | 2018-07-30 09:27 | XRay Report ---
CERVICAL SPINE, 3 views: History: Neck injury, pain. Findings: The vertebral bodies, disk spaces, posterior elements and prevertebral soft tissues are intact. The dens is intact. [id number] degenerative disc disease is noted at C3-4, C4-5, C5-6 and C6-7. No acute fracture or malalignment is identified. Impression: Cervical spondylosis. No evidence for acute injury to the cervical spine.
== END 2018-07-30 09:31 | disposition home or self-care (01) ==
LOC: ED 07:16
DX: M54.12 Radiculopathy, cervical region (principal); I10 Essential (primary) hypertension; K21.9 Gastro-esophageal reflux disease without esophagitis; M10.9 Gout, unspecified; Z88.0 Allergy status to penicillin; Z88.8 Allergy status to other drugs, medicaments and biological substances
CPT/HCPCS: 72040; 99283

== ENCOUNTER 2019-01-03 03:51 | Emergency (ER) | payer OTHER ==
[2019-01-03 04:15] VITALS: BP 160/111
[2019-01-03] MEDS ORDERED: DELTASONE PO ONE (05:55)
[2019-01-03] MEDS ORDERED: IBUPROFEN PO ONE (05:55)
--- NOTE | 2019-01-03 06:01 | Emergency Department Report ---
Upper Extremity - HPI Chief Complaint: Extremity Injury, Upper Stated Complaint: GOUT FLARE UP LEFT HAND Time Seen by Provider: 01/03/19 05:54 Upper Extremity: Left Hand, Left Index Finger Occurred When: 2 Days Mechanism: Other (hx of gout ) Symptoms: Yes Pain with Movement, Yes Swelling, No Deformity, No Limited Range of Movement, No Numbness, No Weakness, No Bruising/Ecchymosis, No Laceration or Abrasion ED Review of Systems ROS: Stated complaint: GOUT FLARE UP LEFT HAND Other details as noted in HPI Constitutional: denies: chills, fever Eyes: denies: eye pain, eye discharge, vision change ENT: denies: ear pain, throat pain Respiratory: denies: cough, shortness of breath, wheezing Cardiovascular: denies: chest pain, palpitations Endocrine: no symptoms reported Gastrointestinal: denies: abdominal pain, nausea, diarrhea Genitourinary: denies: urgency, dysuria Musculoskeletal: arthralgia, other (left hand pain mild swelling erythema ) Skin: denies: rash, lesions Neurological: denies: headache, weakness, paresthesias Psychiatric: denies: anxiety, depression Hematological/Lymphatic: denies: easy bleeding, easy bruising ED Past Medical Hx - Past Medical History Previous Medical History?: Yes Hx Hypertension: Yes Hx GERD: Yes Hx Arthritis: Yes Additional medical history: GOUT - Surgical History Past Surgical History?: Yes Additional Surgical History: bilateral knee surgery - Social History Smoking Status: Never Smoker Substance Use Type: None - Medications Home Medications: Home Medications Medication Instructions Recorded Confirmed Last Taken Type Febuxostat [Uloric] 80 mg PO DAILY 03/23/14 05/06/14 03/23/14 History Lisinopril [Zestril TAB] 5 mg PO QDAY #30 tablet 05/07/14 Unknown Rx amLODIPine 5 mg PO HS #30 tablet 05/07/14 Unknown Rx Cyclobenzaprine [Flexeril 10 MG 10 mg PO Q8H PRN #21 tablet 06/17/14 Unknown Rx TAB] Albuterol Sulfate [Ventolin HFA] 2 puff IH Q4H PRN #1 hfa.aer.ad 12/16/14 Unknown Rx predniSONE [Deltasone] 20 mg PO BID #10 tab 12/16/14 Unknown Rx Benzonatate [Tessalon Perles] 100 mg PO Q8HR #20 capsule 06/13/16 Unknown Rx Colchicine 0.6 mg PO BID #10 tablet 08/11/16 Unknown Rx Indomethacin 50 mg PO Q8H #30 capsule 08/11/16 Unknown Rx traMADol [Ultram 50 MG tab] 50 mg PO Q4HR PRN #30 tablet 08/11/16 Unknown Rx ALBUTEROL Inhaler (OR & NICU) 2 puff IH QID PRN #1 inhalation 04/13/18 Unknown Rx [ProAir HFA Inhaler] Azithromycin [Zithromax Z-KORY] 250 mg PO DAILY #6 tablet 04/13/18 Unknown Rx Benzonatate [Tessalon Perles] 100 mg PO Q8HR #10 capsule 04/13/18 Unknown Rx predniSONE [Deltasone] 20 mg PO QDAY #5 tab 04/13/18 Unknown Rx ALBUTEROL NEB's [Proventil 0.083% 2.5 mg IH Q4HR PRN #30 ml 04/16/18 Unknown Rx NEBS] DOXYCYCLINE Hyclate [Vibramycin 100 mg PO Q12HR #14 capsule 04/16/18 Unknown Rx CAP] Hydrocodone/Chlorphen Polis(Nf 473 ml PO BID #180 susp 04/16/18 Unknown Rx [Tussionex (Nf)] Nebulizer [Truneb Nebulizer] 1 each MC Q4HR PRN #1 each 04/16/18 Unknown Rx methOCARBAMOL [Robaxin TAB] 500 mg PO Q6H PRN #14 tablet 07/30/18 Unknown Rx predniSONE [Deltasone] 20 mg PO QDAY #5 tab 07/30/18 Unknown Rx traMADol [Ultram] 50 mg PO Q6HR PRN #12 tablet 07/30/18 Unknown Rx Indomethacin 50 mg PO Q8H PRN 10 Days #30 01/03/19 Unknown Rx capsule predniSONE [Deltasone] 40 mg PO QDAY 5 Days #10 tab 01/03/19 Unknown Rx Upper Extremity Exam - Exam General: Vital signs noted. No distress. Alert and acting appropriately. Head and Torso: No HEENT Abnormality, No Neck Tenderness, No Chest/Lungs Abnormality, No Abdominal Tenderness, No Back Tenderness Shoulder Exam: Yes Normal Range of Motion in Shoulder, No Shoulder Tenderness, No Clavicle Tenderness, No Shoulder Deformity, No AC Joint Tenderness Arm Exam: No Arm/Humerus Tenderness, No Arm Deformity Elbow: No Elbow Tenderness, No Normal Range of Motion in Elbow, No Elbow Deform ity Forearm: No Forearm Tenderness, No Forearm Deformity, No Pain with Pronation, No Pain with Supination Wrist: Yes Normal ROM in Wrist, No Wrist Tenderness, No Wrist Deformity, No Snuffbox Tenderness, No Pain with Axial Thumb Compression Hand: Yes Hand Tenderness, Yes Digit Tenderness, Yes Normal ROM in Digit(s), No Hand Deformity, No Digit(s) Deformity, No Tendon Dysfunction CMS Exam: Yes Normal Distal Pulses, Yes Normal Capillary Refill, Yes Normal Distal Sensation, No Broken Skin ED Course Vital Signs 01/03/19 03:55 Temperature 97.7 F Pulse Rate 85 Respiratory 18 Rate Blood Pressure 160/111 O2 Sat by Pulse 93 Oximetry ED Medical Decision Making - Medical Decision Making this is a gout exacerbation, plan indomethacin, prednisone, follow up with pcp in 2-3 days , return to ed if symptoms worsen. pt verbalized agreement and understanding of same. Critical care attestation.: If time is entered above; I have spent that time in minutes in the direct care of this critically ill patient, excluding procedure time. ED Disposition Clinical Impression: Gout attack Qualifiers: Gout site: hand Gout etiology: unspecified cause Laterality: left Qualified Code(s): M10.9 - Gout, unspecified Disposition: - TO HOME OR SELFCARE Is pt being admited?: No Does the pt Need Aspirin: No Condition: Stable Instructions: Acute Gouty Arthritis (ED) Prescriptions: predniSONE [Deltasone] 40 mg PO QDAY 5 Days #10 tab Indomethacin 50 mg PO Q8H PRN 10 Days #30 capsule PRN Reason: pain Referrals: JOLIE PATEL MD [Staff Physician] - 3-5 Days Forms: Work/School Release Form(ED) Time of Disposition: 05:59
== END 2019-01-03 06:13 | disposition home or self-care (01) ==
LOC: ED 03:51
DX: M10.9 Gout, unspecified (principal); I10 Essential (primary) hypertension; K21.9 Gastro-esophageal reflux disease without esophagitis; Z98.890 Other specified postprocedural states; Z79.899 Other long term (current) drug therapy; Z88.0 Allergy status to penicillin; Z88.8 Allergy status to other drugs, medicaments and biological substances
CPT/HCPCS: 99282; J7512

== ENCOUNTER 2019-03-03 05:39 | Emergency (ER) | payer OTHER ==
[2019-03-03 05:56] VITALS: BP 154/111
--- NOTE | 2019-03-03 08:10 | Emergency Department Report ---
ED Upper Extremity Inj HPI - General Chief Complaint: Extremity Problem,Nontraumatic Stated Complaint: LEFT HAND PAIN Time Seen by Provider: 03/03/19 07:41 Source: patient Mode of arrival: Ambulatory Limitations: No Limitations - History of Present Illness Initial Comments: This is a 54-year-old male nontoxic, well nourished in appearance, no acute sign s of distress presents to the ED with c/o of left index finger joint pain or swelling. Patient does have history of gout and stated his symptoms are similar. Patient denies having any follow-up. Patient stated he did take Indocin and prednisone and symptoms has resolved but occurred again. Patient denies any trauma. Denies any fever, chills, nausea, vomiting, headache, stiff neck, numbness or tingling. Patient stated allergies to acetaminophen and penicillin. Denies decreased range of motion. MD Complaint: Injury to:: left, hand Other Extremity Injury: Fingers: Left Other Injuries: none Severity scale (0 -10): 8 Improves With: immobilization Worsens With: movement of extremity Associated Symptoms: denies other symptoms. denies: weakness, numbness, neck pain, suspects foreign body, nausea/vomiting, heard/felt popping sensat - Related Data Home Medications Medication Instructions Recorded Confirmed Last Taken Febuxostat [Uloric] 80 mg PO DAILY 03/23/14 05/06/14 03/23/14 Previous Rx's Medication Instructions Recorded Last Taken Type amLODIPine 5 mg PO HS #30 tablet 05/07/14 Unknown Rx lisinopriL [Zestril TAB] 5 mg PO QDAY #30 tablet 05/07/14 Unknown Rx Cyclobenzaprine [Flexeril 10 MG 10 mg PO Q8H PRN #21 tablet 06/17/14 Unknown Rx TAB] Albuterol Sulfate [Ventolin HFA] 2 puff IH Q4H PRN #1 hfa.aer.ad 12/16/14 Un known Rx predniSONE [Deltasone] 20 mg PO BID #10 tab 12/16/14 Unknown Rx Benzonatate [Tessalon Perles] 100 mg PO Q8HR #20 capsule 06/13/16 Unknown Rx Colchicine 0.6 mg PO BID #10 tablet 08/11/16 Unknown Rx Indomethacin 50 mg PO Q8H #30 capsule 08/11/16 Unknown Rx traMADoL [Ultram 50 MG tab] 50 mg PO Q4HR PRN #30 tablet 08/11/16 Unknown Rx ALBUTEROL Inhaler (OR & NICU) 2 puff IH QID PRN #1 inhalation 04/13/18 Unknown Rx [ProAir HFA Inhaler] Azithromycin [Zithromax Z-KORY] 250 mg PO DAILY #6 tablet 04/13/18 Unknown Rx Benzonatate [Tessalon Perles] 100 mg PO Q8HR #10 capsule 04/13/18 Unknown Rx predniSONE [Deltasone] 20 mg PO QDAY #5 tab 04/13/18 Unknown Rx ALBUTEROL NEB's [Proventil 0.083% 2.5 mg IH Q4HR PRN #30 ml 04/16/18 Unknown Rx NEBS] DOXYCYCLINE Hyclate [Vibramycin 100 mg PO Q12HR #14 capsule 04/16/18 Unknown Rx CAP] Hydrocodone/Chlorphen Polis(Nf 473 ml PO BID #180 susp 04/16/18 Unknown Rx [Tussionex (Nf)] Nebulizer [Truneb Nebulizer] 1 each MC Q4HR PRN #1 each 04/16/18 Unknown Rx methOCARBAMOL [Robaxin TAB] 500 mg PO Q6H PRN #14 tablet 07/30/18 Unknown Rx predniSONE [Deltasone] 20 mg PO QDAY #5 tab 07/30/18 Unknown Rx traMADoL [Ultram] 50 mg PO Q6HR PRN #12 tablet 07/30/18 Unknown Rx Indomethacin 50 mg PO Q8H PRN 10 Days #30 01/03/19 Unknown Rx capsule predniSONE [Deltasone] 40 mg PO QDAY 5 Days #10 tab 01/03/19 Unknown Rx Prednisone [predniSONE 10 mg 10 mg PO .TAPER #1 tab.ds.pk 03/03/19 Unknown Rx (6-Day Pack, 21 Tabs)] Allergies Allergy/AdvReac Type Severity Reaction Status Date / Time acetaminophen [From Tylenol] Allergy Swelling Verified 05/03/18 13:31 Penicillins Allergy Swelling Verified 05/03/18 13:31 ED Review of Systems ROS: Stated complaint: LEFT HAND PAIN Other details as noted in HPI Constitutional: denies: chills, fever Eyes: denies: eye pain, eye discharge, vision change ENT: denies: ear pain, throat pain Respiratory: denies: cough, shortness of breath, wheezing Cardiovascular: denies: chest pain, palpitations Endocrine: no symptoms reported Gastrointestinal: denies: abdominal pain, nausea, diarrhea Genitourinary: denies: urgency, dysuria Musculoskeletal: denies: back pain, joint swelling, arthralgia Skin: denies: rash, lesions Neurological: denies: headache, weakness, paresthesias Psychiatric: denies: anxiety, depression Hematological/Lymphatic: denies: easy bleeding, easy bruising ED Past Medical Hx - Past Medical History Previous Medical History?: Yes Hx Hypertension: Yes Hx GERD: Yes Hx Arthritis: Yes Additional medical history: GOUT - Surgical History Past Surgical History?: Yes Additional Surgical History: bilateral knee surgery - Social History Smoking Status: Never Smoker Substance Use Type: None - Medications Home Medications: Home Medications Medication Instructions Recorded Confirmed Last Taken Type Febuxostat [Uloric] 80 mg PO DAILY 03/23/14 05/06/14 03/23/14 History amLODIPine 5 mg PO HS #30 tablet 05/07/14 Unknown Rx lisinopriL [Zestril TAB] 5 mg PO QDAY #30 tablet 05/07/14 Unknown Rx Cyclobenzaprine [Flexeril 10 MG 10 mg PO Q8H PRN #21 tablet 06/17/14 Unknown Rx TAB] Albuterol Sulfate [Ventolin HFA] 2 puff IH Q4H PRN #1 hfa.aer.ad 12/16/14 Unknown Rx predniSONE [Deltasone] 20 mg PO BID #10 tab 12/16/14 Unknown Rx Benzonatate [Tessalon Perles] 100 mg PO Q8HR #20 capsule 06/13/16 Unknown Rx Colchicine 0.6 mg PO BID #10 tablet 08/11/16 Unknown Rx Indomethacin 50 mg PO Q8H #30 capsule 08/11/16 Unknown Rx traMADoL [Ultram 50 MG tab] 50 mg PO Q4HR PRN #30 tablet 08/11/16 Unknown Rx ALBUTEROL Inhaler (OR & NICU) 2 puff IH QID PRN #1 inhalation 04/13/18 Unknown Rx [ProAir HFA Inhaler] Azithromycin [Zithromax Z-KORY] 250 mg PO DAILY #6 tablet 04/13/18 Unknown Rx Benzonatate [Tessalon Perles] 100 mg PO Q8HR #10 capsule 04/13/18 Unknown Rx predniSONE [Deltasone] 20 mg PO QDAY #5 tab 04/13/18 Unknown Rx ALBUTEROL NEB's [Proventil 0.083% 2.5 mg IH Q4HR PRN #30 ml 04/16/18 Unknown Rx NEBS] DOXYCYCLINE Hyclate [Vibramycin 100 mg PO Q12HR #14 capsule 04/16/18 Unknown Rx CAP] Hydrocodone/Chlorphen Polis(Nf 473 ml PO BID #180 susp 04/16/18 Unknown Rx [Tussionex (Nf)] Nebulizer [Truneb Nebulizer] 1 each MC Q4HR PRN #1 each 04/16/18 Unknown Rx methOCARBAMOL [Robaxin TAB] 500 mg PO Q6H PRN #14 tablet 07/30/18 Unknown Rx predniSONE [Deltasone] 20 mg PO QDAY #5 tab 07/30/18 Unknown Rx traMADoL [Ultram] 50 mg PO Q6HR PRN #12 tablet 07/30/18 Unknown Rx Indomethacin 50 mg PO Q8H PRN 10 Days #30 01/03/19 Unknown Rx capsule predniSONE [Deltasone] 40 mg PO QDAY 5 Days #10 tab 01/03/19 Unknown Rx Prednisone [predniSONE 10 mg 10 mg PO .TAPER #1 tab.ds.pk 03/03/19 Unknown Rx (6-Day Pack, 21 Tabs)] ED Physical Exam - General Limitations: No Limitations General appearance: alert, in no apparent distress - Head Head exam: Present: atraumatic, normocephalic - Neck Neck exam: Present: normal inspection, full ROM - Extremities Exam Extremities exam: Present: normal inspection, full ROM, tenderness, normal capillary refill, joint swelling. Absent: calf tenderness - Expanded Upper Extremity Exam Left General: Present: normal inspection Shoulder Exam: Present: normal inspection, full ROM. Absent: tenderness, swelling Upper Arm exam: Present: normal inspection, full ROM. Absent: tenderness, swelling Elbow exam: Present: normal inspection, full ROM. Absent: tenderness, swelling Forearm Wrist exam: Present: normal inspection, full ROM. Absent: tenderness, swelling Hand Wrist exam: Present: normal inspection, full ROM, tenderness, swelling. Absent: abrasion, laceration, ecchymosis, deformity, crepidus, dislocation, erythema, amputation, nail avulsion, subungual hematoma Hand L/R Back: 1 - pain and swelling here Vascular: Present: vascular compromise, normal capillary refill - Back Exam Back exam: Present: normal inspection, full ROM - Neurological Exam Neurological exam: Present: alert, oriented X3, normal gait - Psychiatric Psychiatric exam: Present: normal affect, normal mood - Skin Skin exam: Present: warm, dry, intact, normal color. Absent: rash ED Course Vital Signs 03/03/19 05:53 Temperature 98.4 F Pulse Rate 94 H Respiratory 18 Rate Blood Pressure 154/111 O2 Sat by Pulse 97 Oximetry - Reevaluation(s) Reevaluation #1: 03/03/19 08:14 Patient is speaking in full sentences with no signs of distress noted. ED Medical Decision Making - Medical Decision Making This is a 54-year-old male that presents with gout. Patient is stable and was examined by me. I will discharge patient with prednisone. Patient does have normal ROM with no tenderness and no severe joint swelling. No ecchymosis. no joint redness or swelling. Not warm to touch. No signs of cellulites present. At time of discharge, the patient does not seem toxic or ill in appearance. No acute signs of distress noted. Patient agrees to discharge treatment plan of care. No further questions noted by the patient. Critical care attestation.: If time is entered above; I have spent that time in minutes in the direct care of this critically ill patient, excluding procedure time. ED Disposition Clinical Impression: Gout attack Qualifiers: Gout site: hand Gout etiology: unspecified cause Laterality: left Qualified Code(s): M10.9 - Gout, unspecified Disposition: DC-01 TO HOME OR SELFCARE Is pt being admited?: No Does the pt Need Aspirin: No Condition: Stable Instructions: Acute Gouty Arthritis (ED) Additional Instructions: Follow-up with a primary care doctor in 3-5 days or if symptoms worsen and continue return to emergency room as soon as possible. Prescriptions: Prednisone [predniSONE 10 mg (6-Day Pack, 21 Tabs)] 10 mg PO .TAPER #1 tab.ds.pk Referrals: PRIMARY CARE, [Referring] - 3-5 Days VIRGINIE AMBRIZ MD [Staff Physician] - 3-5 Days [facility] [Outside] - 3-5 Days Forms: Work/School Release Form(ED)
== END 2019-03-03 08:28 | disposition home or self-care (01) ==
LOC: ED 05:39
DX: M10.9 Gout, unspecified (principal); I10 Essential (primary) hypertension; K21.9 Gastro-esophageal reflux disease without esophagitis; M19.90 Unspecified osteoarthritis, unspecified site; Z98.890 Other specified postprocedural states; Z79.899 Other long term (current) drug therapy; Z88.0 Allergy status to penicillin; Z88.8 Allergy status to other drugs, medicaments and biological substances
CPT/HCPCS: 99282

== ENCOUNTER 2019-12-11 06:40 | Emergency (ER) | payer OTHER ==
[2019-12-11 07:51] VITALS: BP 182/117
--- NOTE | 2019-12-11 10:17 | XRay Report ---
RIGHT HAND 3 VIEWS INDICATION: hand pain and swellign. COMPARISON: No relevant prior imaging study available. FINDINGS: No acute, displaced fracture or dislocation is seen. Osteoarthrosis changes are noted, evidenced by joint space narrowing greatest at the triscaphe and th umb carpometacarpal articulations. There is erosive/resorptive changes along the dorsal/ulnar aspect of the third metacarpal head. There is soft tissue swelling somewhat diffusely, greatest along the dorsal aspect of the hand the level o f the metacarpals. IMPRESSION: 1. No acute fracture or dislocation. 2. In addition to osteoarthrosis changes, there is erosive/degenerative change at the long finger met acarpal head. This could be seen in the setting of an inflammatory arthropathy. There is soft tissue swelling which is nonspecific. Signer Name: Son Loredo MD Signed: 12/11/2019 10:13 AM Workstation Name: [id number]
[2019-12-11] MEDS ORDERED: dexAMETHasone 20 MG/5 ML VIAL IM ONE (10:54)
--- NOTE | 2019-12-11 11:01 | Emergency Department Report ---
ED Upper Extremity Inj HPI - General Chief Complaint: Extremity Problem,Nontraumatic Stated Complaint: RT HAND SWOLLEN Time Seen by Provider: 12/11/19 09:34 Source: patient Mode of arrival: Ambulatory Limitations: No Limitations - History of Present Illness Initial Comments: This is a 54-year-old male nontoxic, well nourished in appearance, no acute sig ns of distress presents to the ED with c/o of right index finger joint pain or swelling. Patient does have history of gout and stated his symptoms are similar. Patient denies having any follow-up. Patient stated he did take Indocin and prednisone and symptoms has resolved but occurred again. Patient denies any trauma. Denies any fever, chills, nausea, vomiting, headache, stiff neck, numbness or tingling. Patient stated allergies to acetaminophen and penicillin. Denies decreased range of motion. MD Complaint: Injury to:: right, finger -: days(s) Other Extremity Injury: Fingers: Right Other Injuries: none Severity scale (0 -10): 8 Improves With: none Worsens With: none Associated Symptoms: denies other symptoms. denies: weakness, numbness, neck pain, suspects foreign body, nausea/vomiting, heard/felt popping sensat - Related Data Home Medications Medication Instructions Recorded Confirmed Last Taken Febuxostat [Uloric] 80 mg PO DAILY 03/23/14 05/06/14 03/23/14 Previous Rx's Medication Instructions Recorded Last Taken Type amLODIPine 5 mg PO HS #30 tablet 05/07/14 Unknown Rx lisinopriL [Zestril TAB] 5 mg PO QDAY #30 tablet 05/07/14 Unknown Rx Cyclobenzaprine [Flexeril 10 MG 10 mg PO Q8H PRN #21 tablet 06/17/14 Unknown Rx TAB] Albuterol Sulfate [Ventolin HFA] 2 puff IH Q4H PRN #1 hfa.aer.ad 12/16/14 Unknown Rx predniSONE [Deltasone] 20 mg PO BID #10 tab 12/16/14 Unknown Rx Benzonatate [Tessalon Perles] 100 mg PO Q8HR #20 capsule 06/13/16 Unknown Rx Colchicine 0.6 mg PO BID #10 tablet 08/11/16 Unknown Rx Indomethacin 50 mg PO Q8H #30 capsule 08/11/16 Unknown Rx traMADoL [Ultram 50 MG tab] 50 mg PO Q4HR PRN #30 tablet 08/11/16 Unknown Rx Albuterol Mdi (or & Nicu Only) 2 puff IH QID PRN #1 inhalation 04/13/18 Unknown Rx [ProAir HFA Inhaler] Azithromycin [Zithromax Z-KORY] 250 mg PO DAILY #6 tablet 04/13/18 Unknown Rx Benzonatate [Tessalon Perles] 100 mg PO Q8HR #10 capsule 04/13/18 Unknown Rx predniSONE [Deltasone] 20 mg PO QDAY #5 tab 04/13/18 Unknown Rx ALBUTEROL NEB's [Proventil 0.083% 2.5 mg IH Q4HR PRN #30 ml 04/16/18 Unknown Rx NEBS] DOXYCYCLINE Hyclate [Vibramycin 100 mg PO Q12HR #14 capsule 04/16/18 Unknown Rx CAP] Hydrocodone/Chlorphen Polis(Nf 473 ml PO BID #180 susp 04/16/18 Unknown Rx [Tussionex (Nf)] Nebulizer [Truneb Nebulizer] 1 each MC Q4HR PRN #1 each 04/16/18 Unknown Rx methOCARBAMOL [Robaxin TAB] 500 mg PO Q6H PRN #14 tablet 07/30/18 Unknown Rx predniSONE [Deltasone] 20 mg PO QDAY #5 tab 07/30/18 Unknown Rx traMADoL [Ultram] 50 mg PO Q6HR PRN #12 tablet 07/30/18 Unknown Rx Indomethacin 50 mg PO Q8H PRN 10 Days #30 01/03/19 Unknown Rx capsule predniSONE [Deltasone] 40 mg PO QDAY 5 Days #10 tab 01/03/19 Unknown Rx Prednisone [predniSONE 10 mg 10 mg PO .TAPER #1 tab.ds.pk 03/03/19 Unknown Rx (6-Day Pack, 21 Tabs)] Colchicine 0.6 mg PO ONCE #1 capsule 12/11/19 Unknown Rx Prednisone [predniSONE 10 mg 10 mg PO .TAPER #1 tab.ds.pk 12/11/19 Unknown Rx (6-Day Pack, 21 Tabs)] Allergies Allergy/AdvReac Type Severity Reaction Status Date / Time acetaminophen [From Tylenol] Allergy Swelling Verified 05/03/18 13:31 Penicillins Allergy Swelling Verified 05/03/18 13:31 ED Review of Systems ROS: Stated complaint: RT HAND SWOLLEN Other details as noted in HPI Constitutional: denies: chills, fever Eyes: denies: eye pain, eye discharge, vision change ENT: denies: ear pain, throat pain Respiratory: denies: cough, shortness of breath, wheezing Cardiovascular: denies: chest pain, palpitations Endocrine: no symptoms reported Gastrointestinal: denies: abdominal pain, nausea, diarrhea Genitourinary: denies: urgency, dysuria Musculoskeletal: denies: back pain, joint swelling, arthralgia Skin: denies: rash, lesions Neurological: denies: headache, weakness, paresthesias Psychiatric: denies: anxiety, depression Hematological/Lymphatic: denies: easy bleeding, easy bruising ED Past Medical Hx - Past Medical History Previous Medical History?: Yes Hx Hypertension: Yes Hx GERD: Yes Hx Arthritis: Yes Additional medical history: GOUT - Surgical History Past Surgical History?: Yes Additional Surgical History: bilateral knee surgery - Social History Smoking Status: Never Smoker Substance Use Type: None - Medications Home Medications: Home Medications Medication Instructions Recorded Confirmed Last Taken Type Febuxostat [Uloric] 80 mg PO DAILY 03/23/14 05/06/14 03/23/14 History amLODIPine 5 mg PO HS #30 tablet 05/07/14 Unknown Rx lisinopriL [Zestril TAB] 5 mg PO QDAY #30 tablet 05/07/14 Unknown Rx Cyclobenzaprine [Flexeril 10 MG 10 mg PO Q8H PRN #21 tablet 06/17/14 Unknown Rx TAB] Albuterol Sulfate [Ventolin HFA] 2 puff IH Q4H PRN #1 hfa.aer.ad 12/16/14 Unknown Rx predniSONE [Deltasone] 20 mg PO BID #10 tab 12/16/14 Unknown Rx Benzonatate [Tessalon Perles] 100 mg PO Q8HR #20 capsule 06/13/16 Unknown Rx Colchicine 0.6 mg PO BID #10 tablet 08/11/16 Unknown Rx Indomethacin 50 mg PO Q8H #30 capsule 08/11/16 Unknown Rx traMADoL [Ultram 50 MG tab] 50 mg PO Q4HR PRN #30 tablet 08/11/16 Unknown Rx Albuterol Mdi (or & Nicu Only) 2 puff IH QID PRN #1 inhalation 04/13/18 Unknown Rx [ProAir HFA Inhaler] Azithromycin [Zithromax Z-KORY] 250 mg PO DAILY #6 tablet 04/13/18 Unknown Rx Benzonatate [Tessalon Perles] 100 mg PO Q8HR #10 capsule 04/13/18 Unknown Rx predniSONE [Deltasone] 20 mg PO QDAY #5 tab 04/13/18 Unknown Rx ALBUTEROL NEB's [Proventil 0.083% 2.5 mg IH Q4HR PRN #30 ml 04/16/18 Unknown Rx NEBS] DOXYCYCLINE Hyclate [Vibramycin 100 mg PO Q12HR #14 capsule 04/16/18 Unknown Rx CAP] Hydrocodone/Chlorphen Polis(Nf 473 ml PO BID #180 susp 04/16/18 Unknown Rx [Tussionex (Nf)] Nebulizer [Truneb Nebulizer] 1 each MC Q4HR PRN #1 each 04/16/18 Unknown Rx methOCARBAMOL [Robaxin TAB] 500 mg PO Q6H PRN #14 tablet 07/30/18 Unknown Rx predniSONE [Deltasone] 20 mg PO QDAY #5 tab 07/30/18 Unknown Rx traMADoL [Ultram] 50 mg PO Q6HR PRN #12 tablet 07/30/18 Unknown Rx Indomethacin 50 mg PO Q8H PRN 10 Days #30 01/03/19 Unknown Rx capsule predniSONE [Deltasone] 40 mg PO QDAY 5 Days #10 tab 01/03/19 Unknown Rx Prednisone [predniSONE 10 mg 10 mg PO .TAPER #1 tab.ds.pk 03/03/19 Unknown Rx (6-Day Pack, 21 Tabs)] Colchicine 0.6 mg PO ONCE #1 capsule 12/11/19 Unknown Rx Prednisone [predniSONE 10 mg 10 mg PO .TAPER #1 tab.ds.pk 12/11/19 Unknown Rx (6-Day Pack, 21 Tabs)] ED Physical Exam - General Limitations: No Limitations General appearance: alert, in no apparent distress - Head Head exam: Present: atraumatic, normocephalic - Neck Neck exam: Present: normal inspection, full ROM - Respiratory Respiratory exam: Absent: respiratory distress - Cardiovascular Cardiovascular Exam: Present: regular rate - Extremities Exam Extremities exam: Present: full ROM, tenderness, normal capillary refill. Absent: joint swelling - Expanded Upper Extremity Exam Right General: Present: normal inspection Shoulder Exam: Present: normal inspection, full ROM. Absent: tenderness, swelling Upper Arm exam: Present: normal inspection, full ROM. Absent: tenderness, swelling Elbow exam: Present: normal inspection, full ROM. Absent: tenderness, swelling Forearm Wrist exam: Present: normal inspection, full ROM. Absent: tenderness, swelling Hand Wrist exam: Present: full ROM, tenderness, swelling. Absent: abrasion, laceration, ecchymosis, deformity, crepidus, dislocation, erythema, amputation, nail avulsion, subungual hematoma Hand L/R Back: 1 - pain and swelling here Vascular: Present: normal capillary refill. Absent: vascular compromise (Neurovascular within normal limits) - Back Exam Back exam: Present: full ROM - Neurological Exam Neurological exam: Present: alert, oriented X3, normal gait - Psychiatric Psychiatric exam: Present: normal affect, normal mood - Skin Skin exam: Present: warm, dry, intact, normal color. Absent: rash ED Course Vital Signs 12/11/19 07:50 Temperature 98.4 F Pulse Rate 97 H Respiratory 18 Rate Blood Pressure 182/117 [Right] O2 Sat by Pulse 96 Oximetry - Reevaluation(s) Reevaluation #1: 12/11/19 11:09 Patient is speaking in full sentences with no signs of distress noted. ED Medical Decision Making - Lab Data Lab Results 12/11/19 Range/Units 09:54 Uric Acid 6.7 (3.5-7.6) mg/dL - Radiology Data Referring Physician: STEPHANY BRISCOE Patient Name: LILY SNYDER Date of : 1965 Sex: Male Report Date: 2019-12-11 Report Status: Finalized [address] [address] XRay Report Signed Patient: LILY SNYDER MR#: [id number] : 1965 Acct:[id number] Age/Sex: 54 / M ADM Date: 12/11/19 Loc: ED Attending Dr: Ordering Physician: STEPHANY BRISCOE NP Date of Service: 12/11/19 Procedure(s): XR hand 3+V RT Accession Number(s): [id number] cc: STEPHANY BRISCOE NP Fluoro Time In Minutes: RIGHT HAND 3 VIEWS INDICATION: hand pain and swellign. COMPARISON: No relevant prior imaging study available. FINDINGS: No acute, displaced fracture or dislocation is seen. Osteoarthrosis changes are noted, evidenced by joint space narrowing greatest at the triscaphe and thumb carpometacarpal articulations. There is erosive/resorptive changes along the dorsal/ulnar aspect of the third metacarpal head. There is soft tissue swelling somewhat diffusely, greatest along the dorsal aspect of the hand the level of the metacarpals. IMPRESSION: 1. No acute fracture or dislocation. 2. In addition to osteoarthrosis changes, there is erosive/degenerative change at the long finger metacarpal head. This could be seen in the setting of an inflammatory arthropathy. There is soft tissue swelling which is nonspecific. Signer Name: Son Loredo MD Signed: 12/11/2019 10:13 AM Workstation Name: [id number] By: Dictated By: Son Loredo MD Electronically Authenticated By: Son Loredo MD Signed Date/Time: 12/11/19 1013 DD/ 1010 TD/TT: - Medical Decision Making This is a 54-year-old male that presents with gout. Patient is stable and was examined by me. I will discharge patient with prednisone and colcihine. Patient does have normal ROM with no tenderness and no severe joint swelling. No ecchymosis. no joint redness or swelling. Not warm to touch. No signs of cellulites present. At time of discharge, the patient does not seem toxic or ill in appearance. No acute signs of distress noted. Patient agrees to discharge treatment plan of care. No further questions noted by the patient. Critical care attestation.: If time is entered above; I have spent that time in minutes in the direct care of this critically ill patient, excluding procedure time. ED Disposition Clinical Impression: Gout Qualifiers: Gout site: hand Gout etiology: unspecified cause Chronicity: acute Laterality: right Qualified Code(s): M10.9 - Gout, unspecified Disposition: DC-01 TO HOME OR SELFCARE Is pt being admited?: No Does the pt Need Aspirin: No Condition: Stable Instructions: Acute Gouty Arthritis (ED), Colchicine (By mouth) Additional Instructions: Follow-up with a primary care doctor in 3-5 days or if symptoms worsen and continue return to emergency room as soon as possible. Take last dose of colchicine at 1 PM today. Prescriptions: Colchicine 0.6 mg PO ONCE #1 capsule Prednisone [predniSONE 10 mg (6-Day Pack, 21 Tabs)] 10 mg PO .TAPER #1 tab.ds.pk Referrals: CHRIS PRADO MD [Primary Care Provider] - 3-5 Days PRIMARY CARE, [Referring] - 3-5 Days VIRGINIE AMBRIZ MD [Staff Physician] - 3-5 Days Forms: Work/School Release Form(ED)
[2019-12-11] MEDS ORDERED: COLCHICINE 0.6 MG CAP PO ONE (11:14)
== END 2019-12-11 11:43 | disposition home or self-care (01) ==
LOC: ED 06:40
DX: M10.9 Gout, unspecified (principal); I10 Essential (primary) hypertension; K21.9 Gastro-esophageal reflux disease without esophagitis; Z98.890 Other specified postprocedural states; Z79.2 Long term (current) use of antibiotics; Z79.899 Other long term (current) drug therapy; Z88.0 Allergy status to penicillin; Z88.8 Allergy status to other drugs, medicaments and biological substances
CPT/HCPCS: 36415; 73130; 84550; 96372; 99283; J1100

== ENCOUNTER 2020-03-20 15:44 | Emergency (ER) | payer OTHER ==
[2020-03-20 16:17] VITALS: BP 163/112
--- NOTE | 2020-03-20 16:42 | Emergency Department Report ---
ED General Adult HPI - General Chief complaint: Extremity Injury, Lower Stated complaint: LEFT FOOT PAIN Time Seen by Provider: 03/20/20 16:18 Source: patient Mode of arrival: Ambulatory Limitations: No Limitations - History of Present Illness Initial comments: 55-year-old -Mongolian male patient presents with complaints of left heel pain x6 days. He denies any direct trauma to the foot/injuries, decreased range of motion, numbness/tingling/weakness in his ankle or foot, or redness/fever/chills/sweats. Patient rates his current pain as a 9/10 in severity and states it worsens with weightbearing. He has history of gout, however he states this does not feel like his gout. Severity scale (0 -10): 9 - Related Data Home Medications Medication Instructions Recorded Confirmed Last Taken Febuxostat [Uloric] 80 mg PO DAILY 03/23/14 05/06/14 03/23/14 Previous Rx's Medication Instructions Recorded Last Taken Type amLODIPine 5 mg PO HS #30 tablet 05/07/14 Unknown Rx lisinopriL [Zestril TAB] 5 mg PO QDAY #30 tablet 05/07/14 Unknown Rx Cyclobenzaprine [Flexeril 10 MG 10 mg PO Q8H PRN #21 tablet 06/17/14 Unknown Rx TAB] Albuterol Sulfate [Ventolin HFA] 2 puff IH Q4H PRN #1 hfa.aer.ad 12/16/14 Unknown Rx predniSONE [Deltasone] 20 mg PO BID #10 tab 12/16/14 Unknown Rx Benzonatate [Tessalon Perles] 100 mg PO Q8HR #20 capsule 06/13/16 Unknown Rx Colchicine 0.6 mg PO BID #10 tablet 08/11/16 Unknown Rx Indomethacin 50 mg PO Q8H #30 capsule 08/11/16 Unknown Rx traMADoL [Ultram 50 MG tab] 50 mg PO Q4HR PRN #30 tablet 08/11/16 Unknown Rx Albuterol Mdi (or & Nicu Only) 2 puff IH QID PRN #1 inhalation 04/13/18 Unknown Rx [ProAir HFA Inhaler] Azithromycin [Zithromax Z-KORY] 250 mg PO DAILY #6 tablet 04/13/18 Unknown Rx Benzonatate [Tessalon Perles] 100 mg PO Q8HR #10 capsule 04/13/18 Unknown Rx predniSONE [Deltasone] 20 mg PO QDAY #5 tab 04/13/18 Unknown Rx ALBUTEROL NEB's [Proventil 0.083% 2.5 mg IH Q4HR PRN #30 ml 04/16/18 Unknown Rx NEBS] DOXYCYCLINE Hyclate [Vibramycin 100 mg PO Q12HR #14 capsule 04/16/18 Unknown Rx CAP] Hydrocodone/Chlorphen Polis(Nf 473 ml PO BID #180 susp 04/16/18 Unknown Rx [Tussionex (Nf)] Nebulizer [Truneb Nebulizer] 1 each MC Q4HR PRN #1 each 04/16/18 Unknown Rx methOCARBAMOL [Robaxin TAB] 500 mg PO Q6H PRN #14 tablet 07/30/18 Unknown Rx predniSONE [Deltasone] 20 mg PO QDAY #5 tab 07/30/18 Unknown Rx traMADoL [Ultram] 50 mg PO Q6HR PRN #12 tablet 07/30/18 Unknown Rx Indomethacin 50 mg PO Q8H PRN 10 Days #30 01/03/19 Unknown Rx capsule predniSONE [Deltasone] 40 mg PO QDAY 5 Days #10 tab 01/03/19 Unknown Rx Prednisone [predniSONE 10 mg 10 mg PO .TAPER #1 tab.ds.pk 03/03/19 Unknown Rx (6-Day Pack, 21 Tabs)] Colchicine 0.6 mg PO ONCE #1 capsule 12/11/19 Unknown Rx Prednisone [predniSONE 10 mg 10 mg PO .TAPER #1 tab.ds.pk 12/11/19 Unknown Rx (6-Day Pack, 21 Tabs)] Diclofenac Sodium 50 mg PO TID PRN #21 tablet.dr 03/20/20 Unknown Rx Prednisone [predniSONE 5 mg (6-Day 5 mg PO .TAPER #1 tab.ds.pk 03/20/20 Unknown Rx Pack, 21 Tabs)] traMADoL [Ultram 50 MG tab] 50 - 100 mg PO Q8HR PRN #15 tablet 03/20/20 Unknown Rx Allergies Allergy/AdvReac Type Severity Reaction Status Date / Time acetaminophen [From Tylenol] Allergy Swelling Verified 05/03/18 13:31 Penicillins Allergy Swelling Verified 05/03/18 13:31 ED Review of Systems ROS: Stated complaint: LEFT FOOT PAIN Other details as noted in HPI Constitutional: denies: chills, diaphoresis, fever, malaise, weakness Respiratory: denies: cough, shortness of breath Cardiovascular: denies: chest pain Musculoskeletal: arthralgia. denies: joint swelling Skin: denies: change in color Neurological: denies: numbness, paresthesias ED Past Medical Hx - Past Medical History Previous Medical History?: Yes Hx Hypertension: Yes Hx GERD: Yes Hx Arthritis: Yes Additional medical history: GOUT - Surgical History Past Surgical History?: Yes Additional Surgical History: bilateral knee surgery - Social History Smoking Status: Never Smoker Substance Use Type: None - Medications Home Medications: Home Medications Medication Instructions Recorded Confirmed Last Taken Type Febuxostat [Uloric] 80 mg PO DAILY 03/23/14 05/06/14 03/23/14 History amLODIPine 5 mg PO HS #30 tablet 05/07/14 Unknown Rx lisinopriL [Zestril TAB] 5 mg PO QDAY #30 tablet 05/07/14 Unknown Rx Cyclobenzaprine [Flexeril 10 MG 10 mg PO Q8H PRN #21 tablet 06/17/14 Unknown Rx TAB] Albuterol Sulfate [Ventolin HFA] 2 puff IH Q4H PRN #1 hfa.aer.ad 12/16/14 Unknown Rx predniSONE [Deltasone] 20 mg PO BID #10 tab 12/16/14 Unknown Rx Benzonatate [Tessalon Perles] 100 mg PO Q8HR #20 capsule 06/13/16 Unknown Rx Colchicine 0.6 mg PO BID #10 tablet 08/11/16 Unknown Rx Indomethacin 50 mg PO Q8H #30 capsule 08/11/16 Unknown Rx traMADoL [Ultram 50 MG tab] 50 mg PO Q4HR PRN #30 tablet 08/11/16 Unknown Rx Albuterol Mdi (or & Nicu Only) 2 puff IH QID PRN #1 inhalation 04/13/18 Unknown Rx [ProAir HFA Inhaler] Azithromycin [Zithromax Z-KORY] 250 mg PO DAILY #6 tablet 04/13/18 Unknown Rx Benzonatate [Tessalon Perles] 100 mg PO Q8HR #10 capsule 04/13/18 Unknown Rx predniSONE [Deltasone] 20 mg PO QDAY #5 tab 04/13/18 Unknown Rx ALBUTEROL NEB's [Proventil 0.083% 2.5 mg IH Q4HR PRN #30 ml 04/16/18 Unknown Rx NEBS] DOXYCYCLINE Hyclate [Vibramycin 100 mg PO Q12HR #14 capsule 04/16/18 Unknown Rx CAP] Hydrocodone/Chlorphen Polis(Nf 473 ml PO BID #180 susp 04/16/18 Unknown Rx [Tussionex (Nf)] Nebulizer [Truneb Nebulizer] 1 each MC Q4HR PRN #1 each 04/16/18 Unknown Rx methOCARBAMOL [Robaxin TAB] 500 mg PO Q6H PRN #14 tablet 07/30/18 Unknown Rx predniSONE [Deltasone] 20 mg PO QDAY #5 tab 07/30/18 Unknown Rx traMADoL [Ultram] 50 mg PO Q6HR PRN #12 tablet 07/30/18 Unknown Rx Indomethacin 50 mg PO Q8H PRN 10 Days #30 01/03/19 Unknown Rx capsule predniSONE [Deltasone] 40 mg PO QDAY 5 Days #10 tab 01/03/19 Unknown Rx Prednisone [predniSONE 10 mg 10 mg PO .TAPER #1 tab.ds.pk 03/03/19 Unknown Rx (6-Day Pack, 21 Tabs)] Colchicine 0.6 mg PO ONCE #1 capsule 12/11/19 Unknown Rx Prednisone [predniSONE 10 mg 10 mg PO .TAPER #1 tab.ds.pk 12/11/19 Unknown Rx (6-Day Pack, 21 Tabs)] Diclofenac Sodium 50 mg PO TID PRN #21 tablet.dr 03/20/20 Unknown Rx Prednisone [predniSONE 5 mg (6-Day 5 mg PO .TAPER #1 tab.ds.pk 03/20/20 Unknown Rx Pack, 21 Tabs)] traMADoL [Ultram 50 MG tab] 50 - 100 mg PO Q8HR PRN #15 tablet 03/20/20 Unknown Rx ED Physical Exam - General Limitations: No Limitations General appearance: alert, in no apparent distress, obese - Head Head exam: Present: atraumatic, normocephalic - Eye Eye exam: Present: normal appearance. Absent: scleral icterus - Respiratory Respiratory exam: Absent: respiratory distress - Cardiovascular Cardiovascular Exam: Present: regular rate (Heart rate 86 bpm), normal rhythm - Back Exam Back exam: Present: full ROM, other (Tenderness to palpation noted to left plantar heel and midfoot area without erythema or swelling noted; no obvious bony abnormalities are noted) - Neurological Exam Neurological exam: Present: alert, oriented X3 - Psychiatric Psychiatric exam: Present: normal affect, normal mood - Skin Skin exam: Present: warm, dry, intact, normal color. Absent: rash ED Course Vital Signs 03/20/20 16:13 Temperature 98.0 F Pulse Rate 104 H Respiratory 18 Rate Blood Pressure 163/112 [Right] O2 Sat by Pulse 97 Oximetry ED Medical Decision Making - Radiology Data Radiology results: report reviewed LEFT FOOT 3 VIEW(S) INDICATION / CLINICAL INFORMATION: heel pain, no injury COMPARISON: None available. FINDINGS: BONES / JOINT(S): No acute fracture or subluxation. Cystic degenerative change noted of the great toe proximal phalanx at the IP joint and distal first metatarsal at the MTP joint. Remote trauma noted of the dorsum of the foot involving the medial cuneiform and metatarsal base. Subcortical cystic changes noted of the anterior aspect of the calcaneus. SOFT TISSUES: Generalized soft tissue swelling of the foot and ankle. ADDITIONAL FINDINGS: None. - Medical Decision Making 55-year-old -[place]ong[place] male patient presents with complaints of left heel pain x6 days. He denies any direct trauma to the foot/injuries, decreased range of motion, numbness/tingling/weakness in his ankle or foot, or redness/fever/chills/sweats. Patient rates his current pain as a 9/10 in severity and states it worsens with weightbearing. He has history of gout, however he states this does not feel like his gout. Upon further questioning, patient reports pain is worse with the first step in the morning after waking up. X-ray shows degenerative changes to the heel of the foot. Suspect plantar fasciitis. Discussed treatment and need for follow- up with primary care doctor concerning his degenerative changes in his foot. Also discussed signs and symptoms that should prompt immediate return to the emergency department in detail with patient who verbalizes understanding. He is well-appearing and stable for discharge home. Critical care attestation.: If time is entered above; I have spent that time in minutes in the direct care of this critically ill patient, excluding procedure time. ED Disposition Clinical Impression: Plantar fasciitis of left foot Arthritis of foot, degenerative Qualifiers: Osteoarthritis type: unspecified Laterality: left Qualified Code(s): M19.072 - Primary osteoarthritis, left ankle and foot Disposition: DC- TO HOME OR SELFCARE Is pt being admited?: No Condition: Stable Instructions: Osteoarthritis, Plantar Fasciitis Prescriptions: Diclofenac Sodium 50 mg PO TID PRN #21 tablet.dr PRN Reason: pain Prednisone [predniSONE 5 mg (6-Day Pack, 21 Tabs)] 5 mg PO .TAPER #1 tab.ds.pk traMADoL [Ultram 50 MG tab] 50 - 100 mg PO Q8HR PRN #15 tablet PRN Reason: Pain , Severe (7-10) Referrals: [facility] [Provider Group] - 3-5 Days
--- NOTE | 2020-03-20 17:01 | XRay Report ---
LEFT FOOT 3 VIEW(S) INDICATION / CLINICAL INFORMATION: heel pain, no injury COMPARISON: None available. FINDINGS: BONES / JOINT(S): No acute fracture or subluxation. Cystic degenerative change noted of the great toe proximal phalanx at the IP joint and distal first metatarsal at the MTP joint. Remote trauma noted o f the dorsum of the foot involving the medial cuneiform and metatarsal base. Subcortical cystic metcalf es noted of the anterior aspect of the calcaneus. SOFT TISSUES: Generalized soft tissue swelling of the foot and ankle. ADDITIONAL FINDINGS: None. Signer Name: Tk Serrano MD Signed: 03/20/2020 4:57 PM Workstation Name: [id number]
== END 2020-03-20 18:27 | disposition home or self-care (01) ==
LOC: ED 15:44
DX: M19.072 Primary osteoarthritis, left ankle and foot (principal); M72.2 Plantar fascial fibromatosis; I10 Essential (primary) hypertension; K21.9 Gastro-esophageal reflux disease without esophagitis; M19.91 Primary osteoarthritis, unspecified site; Z98.890 Other specified postprocedural states; Z79.2 Long term (current) use of antibiotics; Z79.899 Other long term (current) drug therapy; Z88.8 Allergy status to other drugs, medicaments and biological substances; Z88.0 Allergy status to penicillin

== ENCOUNTER 2020-09-14 08:52 | Emergency (ER) | payer OTHER ==
--- NOTE | 2020-09-14 09:19 | Emergency Department Report ---
HPI - General Chief Complaint: Extremity Problem,Nontraumatic Time Seen by Provider: 09/14/20 09:07 - HPI HPI: Room 25 The patient is a 55-year-old male present with a chief complaint of right foot pain. The patient states for the past 4 days he has noticed pain and swelling of the small toe on his right foot. Patient states he does not recall any preceding trauma. Patient states he has noticed erythema as well. Patient states it does not feel like his gout. Patient denies history of fever ED Past Medical Hx - Past Medical History Previous Medical History?: Yes Hx Hypertension: Yes Hx GERD: Yes Hx Arthritis: Yes Additional medical history: GOUT - Surgical History Past Surgical History?: Yes Additional Surgical History: bilateral knee surgery - Family History Family history: no significant - Social History Smoking Status: Never Smoker Substance Use Type: None (Denies illicit drug use), Alcohol (Occasional) - Medications Home Medications: Home Medications Medication Instructions Recorded Confirmed Last Taken Type Febuxostat [Uloric] 80 mg PO DAILY 03/23/14 05/06/14 03/23/14 History amLODIPine 5 mg PO HS #30 tablet 05/07/14 Unknown Rx lisinopriL [Zestril TAB] 5 mg PO QDAY #30 tablet 05/07/14 Unknown Rx Cyclobenzaprine [Flexeril 10 MG 10 mg PO Q8H PRN #21 tablet 06/17/14 Unknown Rx TAB] Albuterol Sulfate [Ventolin HFA] 2 puff IH Q4H PRN #1 hfa.aer.ad 12/16/14 Unknown Rx predniSONE [Deltasone] 20 mg PO BID #10 tab 12/16/14 Unknown Rx Benzonatate [Tessalon Perles] 100 mg PO Q8HR #20 capsule 06/13/16 Unknown Rx Colchicine 0.6 mg PO BID #10 tablet 08/11/16 Unknown Rx Indomethacin 50 mg PO Q8H #30 capsule 08/11/16 Unknown Rx traMADoL [Ultram 50 MG tab] 50 mg PO Q4HR PRN #30 tablet 08/11/16 Unknown Rx Albuterol Mdi (or & Nicu Only) 2 puff IH QID PRN #1 inhalation 04/13/18 Unknown Rx [ProAir HFA Inhaler] Azithromycin [Zithromax Z-KORY] 250 mg PO DAILY #6 tablet 04/13/18 Unknown Rx Benzonatate [Tessalon Perles] 100 mg PO Q8HR #10 capsule 04/13/18 Unknown Rx predniSONE [Deltasone] 20 mg PO QDAY #5 tab 04/13/18 Unknown Rx ALBUTEROL NEB's [Proventil 0.083% 2.5 mg IH Q4HR PRN #30 ml 04/16/18 Unknown Rx NEBS] DOXYCYCLINE Hyclate [Vibramycin 100 mg PO Q12HR #14 capsule 04/16/18 Unknown Rx CAP] Hydrocodone/Chlorphen Polis(Nf 473 ml PO BID #180 susp 04/16/18 Unknown Rx [Tussionex (Nf)] Nebulizer [Truneb Nebulizer] 1 each MC Q4HR PRN #1 each 04/16/18 Unknown Rx methOCARBAMOL [Robaxin TAB] 500 mg PO Q6H PRN #14 tablet 07/30/18 Unknown Rx predniSONE [Deltasone] 20 mg PO QDAY #5 tab 07/30/18 Unknown Rx traMADoL [Ultram] 50 mg PO Q6HR PRN #12 tablet 07/30/18 Unknown Rx Indomethacin 50 mg PO Q8H PRN 10 Days #30 01/03/19 Unknown Rx capsule predniSONE [Deltasone] 40 mg PO QDAY 5 Days #10 tab 01/03/19 Unknown Rx Prednisone [predniSONE 10 mg 10 mg PO .TAPER #1 tab.ds.pk 03/03/19 Unknown Rx (6-Day Pack, 21 Tabs)] Colchicine 0.6 mg PO ONCE #1 capsule 12/11/19 Unknown Rx Prednisone [predniSONE 10 mg 10 mg PO .TAPER #1 tab.ds.pk 12/11/19 Unknown Rx (6-Day Pack, 21 Tabs)] Diclofenac Sodium 50 mg PO TID PRN #21 tablet. 03/20/20 Unknown Rx Prednisone [predniSONE 5 mg (6-Day 5 mg PO .TAPER #1 tab.ds.pk 03/20/20 Unknown Rx Pack, 21 Tabs)] traMADoL [Ultram 50 MG tab] 50 - 100 mg PO Q8HR PRN #15 tablet 03/20/20 Unknown Rx Ibuprofen [Motrin 800 MG tab] 800 mg PO Q8HR PRN #20 tablet 09/14/20 Unknown Rx Sulfamethoxazole/Trimethoprim 1 each PO BID #14 tablet 09/14/20 Unknown Rx [Bactrim DS TAB] levoFLOXacin [Levaquin] 750 mg PO QDAY #7 tablet 09/14/20 Unknown Rx traMADoL [Ultram] 50 mg PO Q6HR PRN #14 tablet 09/14/20 Unknown Rx ED Review of Systems ROS: Stated complaint: RT FOOT PAINS Other details as noted in HPI Constitutional: denies: fever Eyes: denies: eye pain ENT: denies: throat pain Respiratory: no symptoms reported Cardiovascular: denies: chest pain Endocrine: no symptoms reported Gastrointestinal: denies: abdominal pain Genitourinary: denies: dysuria Musculoskeletal: arthralgia. denies: back pain Skin: change in color Neurological: denies: headache Physical Exam - Physical Exam Vital Signs: Vital Signs 09/14/20 08:55 Temperature 98.3 F Pulse Rate 105 H Respiratory 20 Rate Blood Pressure 168/114 O2 Sat by Pulse 98 Oximetry Physical Exam: GENERAL: The patient is well-developed well-nourished male sitting on stretcher not appearing to be in acute distress. [] HEENT: Normocephalic. Atraumatic. Extraocular motions are intact. Patient has moist mucous membranes. NECK: Supple. Trachea midline CHEST/LUNGS: There is no respiratory distress noted. HEART/CARDIOVASCULAR: Regular. There is no tachycardia. 2+ right DP SKIN: There is pale erythema and swelling of the right small toe and lateral region of the fifth MTP. No fluctuance appreciated. No lymphangitic streaking NEURO: The patient is awake, alert, and oriented. The patient is cooperative. The patient has no focal neurologic deficits. The patient has normal speech MUSCULOSKELETAL: There is no evidence of acute injury. ED Course Vital Signs 09/14/20 08:55 Temperature 98.3 F Pulse Rate 105 H Respiratory 20 Rate Blood Pressure 168/114 O2 Sat by Pulse 98 Oximetry ED Medical Decision Making - Radiology Data Radiology results: report reviewed (Right foot x-ray), image reviewed (Right foot x-ray) interpreted by me: Right foot x-ray-no acute fracture, no dislocation. No foreign body seen [facility] [address] [place] [address] XRay Report Signed Patient: LILY SNYDER MR#: [id number] : 1965 Acct:[id number] Age/Sex: 55 / M ADM Date: 09/14/20 Loc: ED Attending Dr: Ordering Physician: INDIRA HELMS MD Date of Service: 09/14/20 Procedure(s): XR foot 2V RT Accession Number(s): [id number] cc: INDIRA HELMS MD Fluoro Time In Minutes: RIGHT FOOT 2 VIEWS INDICATION / CLINICAL INFORMATION: Small toe pain and erythema COMPARISON: None available. FINDINGS: BONES / JOINT(S): No acute fracture or subluxation. Mild DJD greatest first metatarsophalangeal joint. Small bunion first metatarsal head. SOFT TISSUES: Mild soft tissue swelling laterally at the level of the fifth metatarsophalangeal joint. ADDITIONAL FINDINGS: None. Signer Name: Massimo Luna MD Signed: 09/14/2020 10:20 AM Workstation Name: [id number] Transcribed By: ES Dictated By: Massimo Luna MD Electronically Authenticated By: Massimo Luna MD Signed Date/Time: 09/14/20 1020 DD/ 1019 TD/TT: Print Cancel - Differential Diagnosis Cellulitis, gout, occult fracture Critical care attestation.: If time is entered above; I have spent that time in minutes in the direct care of this critically ill patient, excluding procedure time. ED Disposition Clinical Impression: Cellulitis of right foot Disposition: DC-01 TO HOME OR SELFCARE Is pt being admited?: No Does the pt Need Aspirin: No Condition: Stable Instructions: Cellulitis, Adult Additional Instructions: Return to the emergency department should you develop worsening symptoms, inability to tolerate food or liquids, high fever or any other concerns Prescriptions: Sulfamethoxazole/Trimethoprim [Bactrim DS TAB] 1 each PO BID #14 tablet levoFLOXacin [Levaquin] 750 mg PO QDAY #7 tablet Ibuprofen [Motrin 800 MG tab] 800 mg PO Q8HR PRN #20 tablet PRN Reason: Pain, Moderate (4-6) traMADoL [Ultram] 50 mg PO Q6HR PRN #14 tablet PRN Reason: Pain Referrals: COURTNEY GONZALEZ MD [Staff Physician] - 3-5 Days Time of Disposition: 10:45
--- NOTE | 2020-09-14 10:24 | XRay Report ---
RIGHT FOOT 2 VIEWS INDICATION / CLINICAL INFORMATION: Small toe pain and erythema COMPARISON: None available. FINDINGS: BONES / JOINT(S): No acute fracture or subluxation. Mild DJD greatest first metatarsophalangeal joint . Small bunion first metatarsal head. SOFT TISSUES: Mild soft tissue swelling laterally at the level of the fifth metatarsophalangeal joint . ADDITIONAL FINDINGS: None. Signer Name: Massimo Luna MD Signed: 09/14/2020 10:20 AM Workstation Name: [id number]
[2020-09-14 11:05] VITALS: BP 157/108
== END 2020-09-14 11:05 | disposition home or self-care (01) ==
LOC: ED 08:52
DX: L03.031 Cellulitis of right toe (principal); I10 Essential (primary) hypertension; K21.9 Gastro-esophageal reflux disease without esophagitis; M19.90 Unspecified osteoarthritis, unspecified site; M10.9 Gout, unspecified; Z88.6 Allergy status to analgesic agent; Z88.0 Allergy status to penicillin
CPT/HCPCS: 99283

== ENCOUNTER 2021-01-09 07:21 | Emergency (ER) | payer OTHER ==
[2021-01-09 07:29] VITALS: BP 186/112
--- NOTE | 2021-01-09 08:00 | Emergency Department Report ---
ED General Adult HPI - General Chief complaint: Upper Respiratory Infection Stated complaint: muscus in chest Time Seen by Provider: 01/09/21 07:34 Source: patient Mode of arrival: Ambulatory Limitations: No Limitations - History of Present Illness Initial comments: 55-year-old -[place] male patient presents with complaints of chest congestion x2 days. Patient states he feels the congestion in his chest only at night when he wakes up he coughs and clears the congestion. He states the cough produces yellow mucus. He denies any fever/chills/sweats, chest pain, shortness of breath, hemoptysis, loss of taste or smell, recent known sick contacts, or swelling in his extremities. Patient states he has had both doses of the Covid vaccination. He states he is otherwise feeling well. He has not tried any OTC medication. His past medical history includes asthma and rheumatoid arthritis. Severity scale (0 -10): 0 - Related Data Home Medications Medication Instructions Recorded Confirmed Last Taken Febuxostat [Uloric] 80 mg PO DAILY 03/23/14 05/06/14 03/23/14 Previous Rx's Medication Instructions Recorded Last Taken Type amLODIPine 5 mg PO HS #30 tablet 05/07/14 Unknown Rx lisinopriL [Zestril TAB] 5 mg PO QDAY #30 tablet 05/07/14 Unknown Rx Cyclobenzaprine [Flexeril 10 MG 10 mg PO Q8H PRN #21 tablet 06/17/14 Unknown Rx TAB] Albuterol Sulfate [Ventolin HFA] 2 puff IH Q4H PRN #1 hfa.aer.ad 12/16/14 Unknown Rx predniSONE [Deltasone] 20 mg PO BID #10 tab 12/16/14 Unknown Rx Benzonatate [Tessalon Perles] 100 mg PO Q8HR #20 capsule 06/13/16 Unknown Rx Colchicine 0.6 mg PO BID #10 tablet 08/11/16 Unknown Rx Indomethacin 50 mg PO Q8H #30 capsule 08/11/16 Unknown Rx traMADoL [Ultram 50 MG tab] 50 mg PO Q4HR PRN #30 tablet 08/11/16 Unknown Rx Albuterol Mdi (or & Nicu Only) 2 puff IH QID PRN #1 inhalation 04/13/18 Unknown Rx [ProAir HFA Inhaler] Azithromycin [Zithromax Z-KORY] 250 mg PO DAILY #6 tablet 04/13/18 Unknown Rx Benzonatate [Tessalon Perles] 100 mg PO Q8HR #10 capsule 04/13/18 Unknown Rx predniSONE [Deltasone] 20 mg PO QDAY #5 tab 04/13/18 Unknown Rx ALBUTEROL NEB's [Proventil 0.083% 2.5 mg IH Q4HR PRN #30 ml 04/16/18 Unknown Rx NEBS] DOXYCYCLINE Hyclate [Vibramycin 100 mg PO Q12HR #14 capsule 04/16/18 Unknown Rx CAP] Hydrocodone/Chlorphen Polis(Nf 473 ml PO BID #180 susp 04/16/18 Unknown Rx [Tussionex (Nf)] Nebulizer [Truneb Nebulizer] 1 each MC Q4HR PRN #1 each 04/16/18 Unknown Rx methOCARBAMOL [Robaxin TAB] 500 mg PO Q6H PRN #14 tablet 07/30/18 Unknown Rx predniSONE [Deltasone] 20 mg PO QDAY #5 tab 07/30/18 Unknown Rx traMADoL [Ultram] 50 mg PO Q6HR PRN #12 tablet 07/30/18 Unknown Rx Indomethacin 50 mg PO Q8H PRN 10 Days #30 01/03/19 Unknown Rx capsule predniSONE [Deltasone] 40 mg PO QDAY 5 Days #10 tab 01/03/19 Unknown Rx Prednisone [predniSONE 10 mg 10 mg PO .TAPER #1 tab.ds.pk 03/03/19 Unknown Rx (6-Day Pack, 21 Tabs)] Colchicine 0.6 mg PO ONCE #1 capsule 12/11/19 Unknown Rx Prednisone [predniSONE 10 mg 10 mg PO .TAPER #1 tab.ds.pk 12/11/19 Unknown Rx (6-Day Pack, 21 Tabs)] Diclofenac Sodium 50 mg PO TID PRN #21 tablet.dr 03/20/20 Unknown Rx Prednisone [predniSONE 5 mg (6-Day 5 mg PO .TAPER #1 tab.ds.pk 03/20/20 Unknown Rx Pack, 21 Tabs)] traMADoL [Ultram 50 MG tab] 50 - 100 mg PO Q8HR PRN #15 tablet 03/20/20 Unknown Rx Ibuprofen [Motrin 800 MG tab] 800 mg PO Q8HR PRN #20 tablet 09/14/20 Unknown Rx Sulfamethoxazole/Trimethoprim 1 each PO BID #14 tablet 09/14/20 Unknown Rx [Bactrim DS TAB] levoFLOXacin [Levaquin] 750 mg PO QDAY #7 tablet 09/14/20 Unknown Rx traMADoL [Ultram] 50 mg PO Q6HR PRN #14 tablet 09/14/20 Unknown Rx Albuterol Mdi (or & Nicu Only) 2 puff IH QID PRN #8.5 gram 01/09/21 Unknown Rx [ProAir HFA Inhaler] Loratadine [Claritin] 10 mg PO QDAY PRN #10 tablet 01/09/21 Unknown Rx guaiFENesin [Guaifenesin] 1,200 mg PO BID PRN 7 Days #14 01/09/21 Unknown Rx tab.er.12h predniSONE [Deltasone] 20 mg PO BID PRN #6 tab 01/09/21 Unknown Rx Allergies Allergy/AdvReac Type Severity Reaction Status Date / Time acetaminophen [From Tylenol] Allergy Swelling Verified 01/09/21 07:25 Penicillins Allergy Swelling Verified 01/09/21 07:25 ED Review of Systems ROS: Stated complaint: muscus in chest Other details as noted in HPI Constitutional: denies: chills, diaphoresis, fever, malaise, weakness ENT: denies: throat pain Respiratory: cough. denies: shortness of breath Cardiovascular: denies: chest pain, edema Gastrointestinal: denies: abdominal pain, nausea, vomiting Neurological: denies: headache ED Past Medical Hx - Past Medical History Hx Hypertension: Yes Hx GERD: Yes Hx Arthritis: Yes Additional medical history: GOUT - Surgical History Additional Surgical History: bilateral knee surgery - Social History Smoking Status: Never Smoker Substance Use Type: None (Denies illicit drug use), Alcohol (Occasional) - Medications Home Medications: Home Medications Medication Instructions Recorded Confirmed Last Taken Type Febuxostat [Uloric] 80 mg PO DAILY 03/23/14 05/06/14 03/23/14 History amLODIPine 5 mg PO HS #30 tablet 05/07/14 Unknown Rx lisinopriL [Zestril TAB] 5 mg PO QDAY #30 tablet 05/07/14 Unknown Rx Cyclobenzaprine [Flexeril 10 MG 10 mg PO Q8H PRN #21 tablet 06/17/14 Unknown Rx TAB] Albuterol Sulfate [Ventolin HFA] 2 puff IH Q4H PRN #1 hfa.aer.ad 12/16/14 Unknown Rx predniSONE [Deltasone] 20 mg PO BID #10 tab 12/16/14 Unknown Rx Benzonatate [Tessalon Perles] 100 mg PO Q8HR #20 capsule 06/13/16 Unknown Rx Colchicine 0.6 mg PO BID #10 tablet 08/11/16 Unknown Rx Indomethacin 50 mg PO Q8H #30 capsule 08/11/16 Unknown Rx traMADoL [Ultram 50 MG tab] 50 mg PO Q4HR PRN #30 tablet 08/11/16 Unknown Rx Albuterol Mdi (or & Nicu Only) 2 puff IH QID PRN #1 inhalation 04/13/18 Unknown Rx [ProAir HFA Inhaler] Azithromycin [Zithromax Z-KORY] 250 mg PO DAILY #6 tablet 04/13/18 Unknown Rx Benzonatate [Tessalon Perles] 100 mg PO Q8HR #10 capsule 04/13/18 Unknown Rx predniSONE [Deltasone] 20 mg PO QDAY #5 tab 04/13/18 Unknown Rx ALBUTEROL NEB's [Proventil 0.083% 2.5 mg IH Q4HR PRN #30 ml 04/16/18 Unknown Rx NEBS] DOXYCYCLINE Hyclate [Vibramycin 100 mg PO Q12HR #14 capsule 04/16/18 Unknown Rx CAP] Hydrocodone/Chlorphen Polis(Nf 473 ml PO BID #180 susp 04/16/18 Unknown Rx [Tussionex (Nf)] Nebulizer [Truneb Nebulizer] 1 each MC Q4HR PRN #1 each 04/16/18 Unknown Rx methOCARBAMOL [Robaxin TAB] 500 mg PO Q6H PRN #14 tablet 07/30/18 Unknown Rx predniSONE [Deltasone] 20 mg PO QDAY #5 tab 07/30/18 Unknown Rx traMADoL [Ultram] 50 mg PO Q6HR PRN #12 tablet 07/30/18 Unknown Rx Indomethacin 50 mg PO Q8H PRN 10 Days #30 01/03/19 Unknown Rx capsule predniSONE [Deltasone] 40 mg PO QDAY 5 Days #10 tab 01/03/19 Unknown Rx Prednisone [predniSONE 10 mg 10 mg PO .TAPER #1 tab.ds.pk 03/03/19 Unknown Rx (6-Day Pack, 21 Tabs)] Colchicine 0.6 mg PO ONCE #1 capsule 12/11/19 Unknown Rx Prednisone [predniSONE 10 mg 10 mg PO .TAPER #1 tab.ds.pk 12/11/19 Unknown Rx (6-Day Pack, 21 Tabs)] Diclofenac Sodium 50 mg PO TID PRN #21 tablet. 03/20/20 Unknown Rx Prednisone [predniSONE 5 mg (6-Day 5 mg PO .TAPER #1 tab.ds.pk 03/20/20 Unknown Rx Pack, 21 Tabs)] traMADoL [Ultram 50 MG tab] 50 - 100 mg PO Q8HR PRN #15 tablet 03/20/20 Unknown Rx Ibuprofen [Motrin 800 MG tab] 800 mg PO Q8HR PRN #20 tablet 09/14/20 Unknown Rx Sulfamethoxazole/Trimethoprim 1 each PO BID #14 tablet 09/14/20 Unknown Rx [Bactrim DS TAB] levoFLOXacin [Levaquin] 750 mg PO QDAY #7 tablet 09/14/20 Unknown Rx traMADoL [Ultram] 50 mg PO Q6HR PRN #14 tablet 09/14/20 Unknown Rx Albuterol Mdi (or & Nicu Only) 2 puff IH QID PRN #8.5 gram 01/09/21 Unknown Rx [ProAir HFA Inhaler] Loratadine [Claritin] 10 mg PO QDAY PRN #10 tablet 01/09/21 Unknown Rx guaiFENesin [Guaifenesin] 1,200 mg PO BID PRN 7 Days #14 01/09/21 Unknown Rx tab.er.12h predniSONE [Deltasone] 20 mg PO BID PRN #6 tab 01/09/21 Unknown Rx ED Physical Exam - General Limitations: No Limitations General appearance: alert, in no apparent distress, obese - Head Head exam: Present: atraumatic, normocephalic - Eye Eye exam: Present: normal appearance - Respiratory Respiratory exam: Present: normal lung sounds bilaterally. Absent: respiratory distress - Cardiovascular Cardiovascular Exam: Present: regular rate, normal rhythm. Absent: systolic murmur, diastolic murmur, rubs, gallop - Extremities Exam Extremities exam: Absent: pedal edema, joint swelling - Neurological Exam Neurological exam: Present: alert, oriented X3 - Psychiatric Psychiatric exam: Present: normal affect, normal mood - Skin Skin exam: Present: warm, dry, intact, normal color. Absent: rash ED Course Vital Signs 01/09/21 01/09/21 07:28 07:59 Temperature 98.6 F Pulse Rate 111 H 94 H Respiratory 20 Rate Blood Pressure 186/112 [Right] O2 Sat by Pulse 96 99 Oximetry ED Medical Decision Making - Medical Decision Making 58-year-old -[place] male patient presents with complaints of left elbow pain x2 days. 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 He rates his pain as a 8/10 in severity. Patient reports good ease daughters are not helping with his pain. He states there is some swelling and difficulty moving the elbow due to the pain. He states he had some tingling down into his fingers that resolved after a few minutes. Lung exam is normal. Given 2-day history of congestion only at night that clears after coughing in the morning, will treat conservatively with Mucinex, Claritin, and some prednisone. Patient's inhaler refilled. Discussed in detail signs and symptoms that should prompt immediate return to the emergency department with patient who verbalizes understanding. His vitals are normal, he is well-appearing, he is stable for discharge home. Patient is to follow-up with his primary care doctor in 3 to 5 days. Critical care attestation.: If time is entered above; I have spent that time in minutes in the direct care of this critically ill patient, excluding procedure time. ED Disposition Clinical Impression: Chest congestion Disposition: 01 HOME / SELF CARE / HOMELESS Is pt being admited?: No Condition: Stable Instructions: Postnasal Drip, Viral Respiratory Infection Prescriptions: Loratadine [Claritin] 10 mg PO QDAY PRN #10 tablet PRN Reason: chest congesiton predniSONE [Deltasone] 20 mg PO BID PRN #6 tab PRN Reason: chest congesiton guaiFENesin [Guaifenesin] 1,200 mg PO BID PRN 7 Days #14 tab.er.12h PRN Reason: chest congestion Albuterol Mdi (or & Nicu Only) [ProAir HFA Inhaler] 2 puff IH QID PRN #8.5 gram PRN Reason: Shortness Of Breath Referrals: PRIMARY CARE, [Primary Care Provider] - 3-5 Days Forms: Work/School Release Form(ED)
== END 2021-01-09 08:09 | disposition home or self-care (01) ==
LOC: ED 07:21
DX: R09.89 Other specified symptoms and signs involving the circulatory and respiratory systems (principal); Z88.6 Allergy status to analgesic agent; Z88.0 Allergy status to penicillin; I10 Essential (primary) hypertension; F10.20 Alcohol dependence, uncomplicated
CPT/HCPCS: 99282; 99285